=== PATIENT | male | born 1935 | race Caucasian/White ===

== ENCOUNTER → 2016-08-29 | Outpatient (REF) | payer MEDICARE, OTHER ==
[~2016-08-29] MED LIST: /PRAV20TA PO; ARIC5TAB PO; ASPI1TAB PO; ASPI81TA7 PO; ATEN25TA PO; CALC600T57 PO; CIPR500T3 PO; DONETAB6 PO; FISH1000 PO; FISH120012 PO; FLAG500T PO; GABA-283 PO; GABA400C PO; LEUP375KIT IM; LISI2.5T PO; LISI2.5T3 PO; LORTTAB5 PO; LUPRON IM; MULTTAB4 PO; OYSCTAB3 PO; PRAV80TA2 PO; TAMS0.4C2 PO; TYLE325T5 PO; VITMTA PO
== END ==
LOC: M LAB REF 12:26
PROVIDERS: ATTEND Internal Medicine Medical Oncology
DX: C61 Malignant neoplasm of prostate (principal)

== ENCOUNTER → 2016-11-30 | Outpatient (REF) | payer MEDICARE, OTHER ==
[2016-11-30 14:01] LABS: TOTAL PROTEIN 6.9 GM/DL (6.4-8.2)
[2016-12-01 12:39] LABS: ALBUMIN 3.59 GM/DL (3.29-5.55); GAMMA GLOBULIN % 15.2 % (11.1-18.8)
== END ==
LOC: M LAB REF 13:31
PROVIDERS: ATTEND Internal Medicine Medical Oncology
DX: C61 Malignant neoplasm of prostate (principal)

== ENCOUNTER → 2017-03-01 | Outpatient (REF) | payer OTHER, MEDICARE ==
[~2017-03-01] MED LIST changes: +ASPI81TAEC PO; +B121000T PO; +FINA5TAB2 PO; +FLOM5CAP PO; +KEPP250T5 PO; +LOMO2.5T PO; +RISP0.2516 PO
== END ==
LOC: M LAB REF 13:26
PROVIDERS: ATTEND Internal Medicine Medical Oncology
DX: C61 Malignant neoplasm of prostate (principal)

== ENCOUNTER 2017-04-12 18:51 | Observation (INO) | payer OTHER, MEDICAID ==
[~2017-04-12] VITALS: Ht 177.8 cm; Wt 81.4 kg
[~2017-04-12 18:51] MED LIST changes: -ASPI81TAEC PO; -B121000T PO; -FINA5TAB2 PO; -FLOM5CAP PO; -KEPP250T5 PO; -LOMO2.5T PO; -RISP0.2516 PO
[2017-04-12] MEDS ORDERED: NS 500 ML IV ONE (19:30)
[2017-04-12 19:37] LABS: BASO % 1.2 % (0.0-1.0); EOS # 0.2 K/mm3 (0.0-0.50); EOS % 4.9 % (0.0-3.0); LARGE UNSTAINED CELL # 0.2 K/mm3 (0.0-0.4); LARGE UNSTAINED CELL % 3.8 % (0.0-4.0); LYMPH % 22.5 % (24.0-44.0); MEAN CORPUSCULAR HEMOGLOBIN 32.1 pg (27.0-33.0); MEAN CORPUSCULAR HGB CONC 34.7 g/dl (32.0-36.5); MEAN CORPUSCULAR VOLUME 92.5 fl (80.0-96.0); MONO # 0.3 K/mm3 (0.0-0.8); MONO % 7.6 % (0.0-5.0); NEUTROPHILS # 2.6 K/mm3 (1.8-7.7); NEUTROPHILS % 59.9 % (36.0-66.0); PLATELET COUNT, AUTOMATED 218 k/mm3 (150-450); RED CELL DISTRIBUTION WIDTH 11.8 % (11.5-14.5); WHITE BLOOD COUNT 4.3 K/mm3 (4.0-10.0)
[2017-04-12 19:39] LABS: VENOUS BASE EXCESS 3.2 (-2.0-2.0); VENOUS O2 SATURATION 66.7 % (60.0-80.0); VENOUS PARTIAL PRESSURE CO2 48.1 mmHg (38.0-50.0); VENOUS PARTIAL PRESSURE O2 35.7 mmHg (30.0-50.0); VENOUS STANDARD HCO3 26.6 MEQ/L; VENOUS TOTAL CO2 30.3 MEQ/L (24.0-28.0)
--- NOTE | 2017-04-12 19:50 | REPUSA ---
HISTORY: ALTERED MENTAL STATUS. Comparison is made to previous head CT dated 01/31/13. TECHNIQUE: Axial CT imaging of brain without contrast. DLP= 836.2 mGy-cm. FINDINGS: Ventricles and sulci are enlarged consistent with generalized cerebral atrophy, progressiv taylor increased since previous examination. There is no evidence of intracranial hemorrhage, mass, mid line shift, infarct, or abnormal extra-axial fluid collection seen. There is no evidence of skull fracture. Skull base and CP angle regions are normal. Paranasal sinus es are clear. IMPRESSION: Progressive increase of generalized cerebral atrophy with no intracranial mass, hemorrhag e, or evidence of infarct seen at this time. Clinical correlation and followup imaging may be warranted as clinically indicated.
[2017-04-12 20:04] LABS: ALBUMIN 3.2 GM/DL (3.2-5.2); ALBUMIN/GLOBULIN RATIO 0.84 (1.00-1.93); ALKALINE PHOSPHATASE 94 U/L (45-117); ALT/SGPT 16 U/L (12-78); ANION GAP 10 MEQ/L (8-16); AST/SGOT 13 U/L (15-37); BILIRUBIN,DIRECT 0.2 MG/DL (0.0-0.2); BILIRUBIN,TOTAL 0.5 MG/DL (0.2-1.0); BLOOD UREA NITROGEN 24 MG/DL (7-18); CALCIUM LEVEL 8.8 MG/DL (8.8-10.2); CARBON DIOXIDE LEVEL 29 MEQ/L (21-32); CHLORIDE LEVEL 104 MEQ/L (98-107); CREATININE FOR GFR 1.72 MG/DL (0.70-1.30); GLOMERULAR FILTRATION RATE 40.8 (>35); GLUCOSE, FASTING 103 MG/DL (83-110); POTASSIUM SERUM 4.2 MEQ/L (3.5-5.1); SODIUM LEVEL 143 MEQ/L (136-145)
[2017-04-12] MEDS ORDERED: ASPIRIN 81 MG ENTERIC TAB PO SCH (21:00)
[2017-04-12] MEDS ORDERED: LISINOPRIL *2.5 MG* TAB PO SCH (21:00)
[2017-04-12] MEDS ORDERED: FINASTERIDE 5 MG TAB PO SCH (21:00)
[2017-04-12] MEDS ORDERED: FINA5TAB2 PO (21:30)
[2017-04-12] MEDS ORDERED: ASPI81TAEC PO (21:30)
[2017-04-12] MEDS ORDERED: LOMO2.5T PO (21:30)
--- NOTE | 2017-04-12 21:46 | ECGEPIP ---
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
[2017-04-12] MEDS ORDERED: ASPIRIN 325 MG TAB PO ONE (22:00)
[2017-04-12] MEDS ORDERED: NS 1,000 ML IV SCH (22:00)
[2017-04-12] MEDS ORDERED: ACETAMINOPHEN 325 MG TAB PO PRN (22:15)
[2017-04-12 22:51] VITALS: BP 137/70
--- NOTE | 2017-04-12 22:54 | HPEPDOC ---
Medical History and Physical Date of Admission 04/12/17 History and Physical PRIMARY CARE PROVIDER: [facility] ATTENDING: Dr. Renea Sanchez CHIEF COMPLAINT: AMS HISTORY OF PRESENT ILLNESS: This is a 81 y/o M CHB s/p PPM, HTN, Alzheimer's dementia (baseline mumbling), AAA, H/o prostate ca who presents with periods of aphasia. and son state patient has had this over the past year, but it has been progressive today, and they have were worried. Pt had periods of aphasia today , more so expressive. Has also developed tremors over the past month. Once he comes out of his periods of aphasia, he is very disoriented. He is also not been eating well. Has refused to drink fluids and therefore has not been urinating rate much. Has prior admissions for dehydration. Family states that the patient's symptoms have resolved in the ED. His CAT scan of the head was negative in the ED. PAST MEDICAL HISTORY: As per HPI PAST SURGICAL HISTORY: Cholecystectomy, PPM SOCIAL HISTORY: H/o tobacco abuse. No alcohol or illicit drug use. FAMILY HISTORY: Noncontributory ALLERGIES: Please see below. REVIEW OF SYSTEMS: HEENT: Denies sore throat/headache CARDIOVASCULAR: Denies chest pain/palpitations RESPIRATORY: Denies shortness of breath/cough GASTROINTESTINAL: denies nausea/vomiting GENITOURINARY: Denies dysuria/urinary urgency. MUSCULOSKELETAL: Denies myalgias/arthralgias NEUROLOGICAL: Denies any focal weakness HOME MEDICATIONS: Please see below. PHYSICAL EXAMINATION: Vitals: (see below) General: No acute distress, laying comfortably in bed. HEENT: Moist mucous membranes. Neck: No JVD or lymphadenopathy Cardiac: RRR, No murmurs Pulm: Dimished breath sounds at the bases b/l. No wheezing, rhonchi Abd: NT/ND + BS Ext: No edema or cyanosis Neuro: Strength 5/5 BUE and BLE. CN 2-12 intact. Not oriented. Mumbles. States he "feels good" LABORATORY DATA: See below. IMAGING: CT Head 04/12/17 IMPRESSION: Progressive increase of generalized cerebral atrophy with no intracranial mass, hemorrhage, or evidence of infarct seen at this time. MICROBIOLOGY: Please see below. ASSESSMENT/PLAN: 1. AMS with aphasic moments. Progressive over the past year. ? Progression of Dementia. R/o TIA/Seizure given baseline status of mumbling makes it difficult to assess. CT head (see above). No focal deficits on exam, although exam was difficult to complete. MRI Brain unable to obtain given PPM. Repeat CT head in the am. Neuro checks. PT/OT/ST. Consider neuro consult if no improvement. 2. H/o complete heart block s/p PPM 3. HTN - controlled. Cont home meds. 4. HLD - cont statin. 5. H/o AAA 6. H/o Diverticulitis DVT prophy - SCDs. Vital Signs Vital Signs Date Time Temp Pulse Resp B/P (MAP) Pulse Ox O2 Delivery O2 Flow Rate FiO2 04/12/17 21:48 118/58 (78) 04/12/17 21:36 74 95 04/12/17 19:00 97.6 16 Room Air Laboratory Data Labs 24H Laboratory Tests 2 04/12/17 19:17: White Blood Count 4.3, Red Blood Count 3.62L, Hemoglobin 11.6L, Hematocrit 33.5L , Mean Corpuscular Volume 92.5, Mean Corpuscular Hemoglobin 32.1, Mean Corpuscular Hemoglobin Concent 34.7, Red Cell Distribution Width 11.8, Platelet Count 218, Neutrophils (%) (Auto) 59.9, Lymphocytes (%) (Auto) 22.5L, Monocytes (%) (Auto) 7.6H, Eosinophils (%) (Auto) 4.9H, Basophils (%) (Auto) 1.2H, Neutrophils # (Auto) 2.6, Lymphocytes # (Auto) 1.0L, Monocytes # (Auto) 0.3, Eosinophils # (Auto) 0.2, Basophils # (Auto) 0.0, Large Unclassified Cells % 3.8 , Large Unclassified Cells # 0.2, Blood Gas Bicarbonate Standard 26.6, Venous Blood pH 7.395, Venous Blood Partial Pressure CO2 48.1, Venous Blood Partial Pressure O2 35.7, Venous Blood Total Carbon Dioxide 30.3H, Venous Blood HCO3 28.8H, Venous Blood Oxygen Saturation 66.7, Venous Blood Base Excess 3.2H, Anion Gap 10, Glomerular Filtration Rate 40.8, Lactic Acid Level 1.2, Calcium Level 8.8, Aspartate Amino Transf (AST/SGOT) 13L, Alanine Aminotransferase (ALT/ SGPT) 16, Alkaline Phosphatase 94, Total Bilirubin 0.5, Direct Bilirubin 0.2, Ammonia 21, Total Creatine Kinase 48, Creatine Kinase MB 1.0, Creatine Kinase MB Relative Index 2.08, Troponin I < 0.02, Total Protein 7.0, Albumin 3.2, Albumin/Globulin Ratio 0.84L, Thyroid Stimulating Hormone (TSH) 1.680 04/12/17 19:52: Urine Appearance CLEAR, Urine Color YELLOW, Urine pH 5.0, Urine Specific [place] 1.013, Urine Protein NEGATIVE, Urine Glucose (UA) NEGATIVE, Urine Ketones NEGATIVE, Urine Urobilinogen 0.2, Urine Bilirubin NEGATIVE, Urine Leukocyte Esterase NEGATIVE, Urine Blood NEGATIVE, Urine Nitrite NEGATIVE, Urine WBC (Auto) 0, Urine RBC (Auto) 0, Urine Hyaline Casts (Auto) 1, Urine Bacteria (Auto) NEGATIVE, Urine Squamous Epithelial Cells 0, Urine Sperm (Auto) 04/12/17 20:25: Bedside Glucose (Misc Panel) 104 CBC/BMP Laboratory Tests 04/12/17 19:17 Red Blood Count 3.62 L, Mean Corpuscular Volume 92.5, Mean Corpuscular Hemoglobin 32.1, Mean Corpuscular Hemoglobin Concent 34.7, Red Cell Distribution Width 11.8, Neutrophils (%) (Auto) 59.9, Lymphocytes (%) (Auto) 22.5 L, Monocytes (%) (Auto) 7.6 H, Eosinophils (%) (Auto) 4.9 H, Basophils (%) (Auto) 1.2 H, Neutrophils # (Auto) 2.6, Lymphocytes # (Auto) 1.0 L, Monocytes # (Auto) 0.3, Eosinophils # (Auto) 0.2, Basophils # (Auto) 0.0 Microbiology Microbiology 04/12/17 Blood Culture, Received Pending 04/12/17 Blood Culture, Received Pending 04/12/17 Urine Culture, Received Pending Home Medications Scheduled Aspirin (Aspirin EC) 81 Mg Tabec, 81 MG PO QHS Diphenoxylate/Atropine (Lomotil 2.5-0.025 mg) 1 Tab Tab, 2 TAB PO BID Donepezil Hcl (Donepezil HCl) 10 Mg Tab, 10 MG PO QHS Finasteride (Finasteride) 5 Mg Tab, 5 MG PO DAILY Gabapentin (Gabapentin) 400 Mg Cap, 400 MG PO BID Pravastatin Sodium (Pravastatin Sodium) 80 Mg Tab, 80 MG PO QHS Tamsulosin Hydrochloride (Flomax) 0.4 Mg Cap, 0.4 MG PO DAILY Scheduled PRN Acetaminophen (Tylenol) 325 Mg Tab, 650 MG PO Q4H PRN for PAIN Allergies Coded Allergies: Latex (Verified Allergy, Intermediate, HIVES/SWELLING, 01/31/13) Sulfa Drugs (Verified Allergy, Intermediate, HIVES, 01/31/13) Sulfa Drugs Cross Reactors (Verified Allergy, Intermediate, HIVES, 01/31/13 ) Tamsulosin (Verified Allergy, Unknown, 01/27/16) Codeine (Verified Adverse Reaction, Intermediate, UNABLE TO FUNCTION, 01/31) OSORIO ALFORD MD Apr 12, 2017 22:54
[2017-04-12] MEDS: GABAPENTIN 400 MG CAP PO SCH (23:53)
[2017-04-12 23:57] VITALS: BP 112/55
[2017-04-13] VITALS: BP 112/55
[2017-04-13 04:00] VITALS: BP 103/71
--- NOTE | 2017-04-13 05:45 | REP ---
Portable chest x-ray: Single view. History: Altered mental status. Comparison study: February 02, 2013. Findings: EKG monitoring electrodes overlie the chest. Heart is not enlarged. There is a pacemaker in the right heart via the left side, dual lead. The pleural angles are sharp. Impression: No active disease. Pacemaker. Signed by Elia Bustamante MD 04/13/2017 08:23 A
--- NOTE | 2017-04-13 06:40 | REPUSA ---
CLINICAL HISTORY: Altered mental status. TECHNIQUE: Multiple axial CT images were obtained through the brain without IV contrast material. COMMENTS: Comparison to the prior exam performed on 04/12/2017. There is normal configuration of sella turcica. There are no intra or extra-axial collections. There is no mass effect or midline shift. There is no evidence of hematoma formation. No hydrocephalus is p resent. The ventricles are symmetrical. No abnormal calcifications are present. There is diffuse age-appropriate cerebellar and cerebral atrophy with proportionally dilated ventricl es and cortical sulci. There are bilateral periventricular and subcortical white matter hypolucencies compatible with mild c hronic microvascular disease. Otherwise, no significant focal abnormalities are seen either in the posterior fossa or supratentoria l compartment. IMPRESSION: 1. Age-appropriate cerebellar and cerebral atrophy. 2. Mild chronic microvascular disease. 3. No evidence of acute intracranial pathology. Unchanged exam. Thank you for your kind referral of this patient.
[2017-04-13 07:13] LABS: MEAN CORPUSCULAR HEMOGLOBIN 31.3 pg (27.0-33.0); MEAN CORPUSCULAR HGB CONC 33.2 g/dl (32.0-36.5); MEAN CORPUSCULAR VOLUME 94.3 fl (80.0-96.0); WHITE BLOOD COUNT 5.2 K/mm3 (4.0-10.0)
[2017-04-13 07:42] LABS: ANION GAP 10 MEQ/L (8-16); BLOOD UREA NITROGEN 19 MG/DL (7-18); CALCIUM LEVEL 8.8 MG/DL (8.8-10.2); CARBON DIOXIDE LEVEL 25 MEQ/L (21-32); CHLORIDE LEVEL 109 MEQ/L (98-107); CREATININE FOR GFR 1.49 MG/DL (0.70-1.30); GLOMERULAR FILTRATION RATE 48.2 (>35); GLUCOSE, FASTING 99 MG/DL (83-110); POTASSIUM SERUM 4.3 MEQ/L (3.5-5.1); SODIUM LEVEL 144 MEQ/L (136-145)
[2017-04-13 08:00] VITALS: BP 133/68
[2017-04-13] MEDS: GABAPENTIN 400 MG CAP PO SCH (08:26)
[2017-04-13 09:46] LABS: VITAMIN B12 LEVEL 321 PG/ML (247-911)
--- NOTE | 2017-04-13 11:55 | IPNPDOC ---
Subjective Date Seen The patient was seen on 04/13/17. Subjective Chief Complaint/HPI The patient is a 81-year-old male admitted with a reason for visit of TIA. Events since last encounter better this morning had food this am , communicating at baseline as per , does not offer any complaints. no fever or chills, no chest pain or sob , no cough , no abdominal pain , nausea or vomiting or diarrhea Objective Physical Examination General Exam: Positive: Alert, Cooperative, No Acute Distress Eye Exam: Positive: PERRLA, Conjunctiva & lids normal, EOMI, Negative: Sclera icteric ENT Exam: Positive: Atraumatic, Mucous membr. moist/pink, Pharynx Normal Neck Exam: Positive: Supple, Negative: JVD, thyromegaly Chest Exam: Positive: Clear to auscultation, Normal air movement Heart Exam: Positive: Rate Normal, Regular Rhythm, Normal S1, Normal S2, Negative: Murmurs, Rubs Telemetry: Positive: No significant arrhythmia Abdomen Exam: Positive: Normal bowel sounds, Soft, Negative: Tenderness, Hepatospenomegaly Extremity Exam: Positive: Normal pulses, Negative: Clubbing, Cyanosis, Edema Skin Exam: Positive: Nl turgor and temperature, Negative: Rash, Breakdown Assessment /Plan Problems (1) Dehydration Status: Acute Problem Text: has improved with ivf. will stop ivf (2) Acute metabolic encephalopathy Status: Acute Problem Text: due to dehydration on the background of baseline dementia. This made his mental status worse. (3) Acute kidney injury superimposed on CKD Status: Acute Problem Text: due to dehydration now improved baseline creatinine around 1.4 to 1.5 (4) Dementia Status: Chronic Problem Text: has progressive Alzheimer's dementia worsening over the past 1 year Has expressive aphasia at baseline but worse yesterday due to dehydration. will continue with home medications. (5) Pacemaker Status: Chronic (6) AAA (abdominal aortic aneurysm) Status: Chronic (7) Hypertension Status: Chronic Problem Text: At present blood pressure low normal and too well controlled for his age will discontinue lisinopril Can allow SBPs of 140 to 150. (8) History of prostate cancer Status: Chronic Plan/VTE VTE Prophylaxis Ordered?: Yes VS, I&O, 24H, Fishbone Vital Signs/I&O Vital Signs Date Time Temp Pulse Resp B/P (MAP) Pulse Ox O2 Delivery O2 Flow Rate FiO2 04/13/17 08:00 97.6 66 16 133/68 (89) 96 Room Air I&O- Last 24 Hours up to 6 AM 04/13/17 05:59 Intake Total 80 ml Output Total 450 ml Balance -370 ml Laboratory Data 24H LABS Laboratory Tests 2 04/12/17 19:17: White Blood Count 4.3, Red Blood Count 3.62L, Hemoglobin 11.6L, Hematocrit 33.5L , Mean Corpuscular Volume 92.5, Mean Corpuscular Hemoglobin 32.1, Mean Corpuscular Hemoglobin Concent 34.7, Red Cell Distribution Width 11.8, Platelet Count 218, Neutrophils (%) (Auto) 59.9, Lymphocytes (%) (Auto) 22.5L, Monocytes (%) (Auto) 7.6H, Eosinophils (%) (Auto) 4.9H, Basophils (%) (Auto) 1.2H, Neutrophils # (Auto) 2.6, Lymphocytes # (Auto) 1.0L, Monocytes # (Auto) 0.3, Eosinophils # (Auto) 0.2, Basophils # (Auto) 0.0, Large Unclassified Cells % 3.8 , Large Unclassified Cells # 0.2, Blood Gas Bicarbonate Standard 26.6, Venous Blood pH 7.395, Venous Blood Partial Pressure CO2 48.1, Venous Blood Partial Pressure O2 35.7, Venous Blood Total Carbon Dioxide 30.3H, Venous Blood HCO3 28.8H, Venous Blood Oxygen Saturation 66.7, Venous Blood Base Excess 3.2H, Anion Gap 10, Glomerular Filtration Rate 40.8, Lactic Acid Level 1.2, Calcium Level 8.8, Aspartate Amino Transf (AST/SGOT) 13L, Alanine Aminotransferase (ALT/ SGPT) 16, Alkaline Phosphatase 94, Total Bilirubin 0.5, Direct Bilirubin 0.2, Ammonia 21, Total Creatine Kinase 48, Creatine Kinase MB 1.0, Creatine Kinase MB Relative Index 2.08, Troponin I < 0.02, Total Protein 7.0, Albumin 3.2, Albumin/Globulin Ratio 0.84L, Thyroid Stimulating Hormone (TSH) 1.680 04/12/17 19:52: Urine Appearance CLEAR, Urine Color YELLOW, Urine pH 5.0, Urine Specific [place] 1.013, Urine Protein NEGATIVE, Urine Glucose (UA) NEGATIVE, Urine Ketones NEGATIVE, Urine Urobilinogen 0.2, Urine Bilirubin NEGATIVE, Urine Leukocyte Esterase NEGATIVE, Urine Blood NEGATIVE, Urine Nitrite NEGATIVE, Urine WBC (Auto) 0, Urine RBC (Auto) 0, Urine Hyaline Casts (Auto) 1, Urine Bacteria (Auto) NEGATIVE, Urine Squamous Epithelial Cells 0, Urine Sperm (Auto) 04/12/17 20:25: Bedside Glucose (Misc Panel) 104 04/13/17 00:46: Total Creatine Kinase 41, Creatine Kinase MB 1.0, Creatine Kinase MB Relative Index 2.43, Troponin I < 0.02 04/13/17 06:58: Anion Gap 10, Glomerular Filtration Rate 48.2, Blood Urea Nitrogen 19H, Creatinine 1.49H, Sodium Level 144, Potassium Level 4.3, Chloride Level 109H, Carbon Dioxide Level 25, Calcium Level 8.8, Total Creatine Kinase 45, Magnesium Level 2.0, Creatine Kinase MB 1.0, Creatine Kinase MB Relative Index 2.22, Troponin I < 0.02, Vitamin B12 Level 321 CBC/BMP Laboratory Tests 04/12/17 19:17 Red Blood Count 3.62 L, Mean Corpuscular Volume 92.5, Mean Corpuscular Hemoglobin 32.1, Mean Corpuscular Hemoglobin Concent 34.7, Red Cell Distribution Width 11.8, Neutrophils (%) (Auto) 59.9, Lymphocytes (%) (Auto) 22.5 L, Monocytes (%) (Auto) 7.6 H, Eosinophils (%) (Auto) 4.9 H, Basophils (%) (Auto) 1.2 H, Neutrophils # (Auto) 2.6, Lymphocytes # (Auto) 1.0 L, Monocytes # (Auto) 0.3, Eosinophils # (Auto) 0.2, Basophils # (Auto) 0.0 04/13/17 06:58 Red Blood Count 3.42 L, Mean Corpuscular Volume 94.3, Mean Corpuscular Hemoglobin 31.3, Mean Corpuscular Hemoglobin Concent 33.2, Red Cell Distribution Width 12.0, Calcium Level 8.8, Total Creatine Kinase 45 Microbiology Microbiology 04/12/17 Blood Culture, Received Pending 04/12/17 Blood Culture, Received Pending 04/12/17 Urine Culture, Received Pending DARRYN SHIELDS MD Apr 13, 2017 11:55
[2017-04-13] MEDS ORDERED: PRAVASTATIN 20 MG TAB PO SCH (21:00)
[2017-04-13] MEDS ORDERED: ASPIRIN 81 MG ENTERIC TAB PO SCH (21:00)
[2017-04-15] MEDS ORDERED: PREVNAR 13 VACCINE SYRINGE (CPT CODE:90670) IM ONE (09:00)
--- NOTE | 2017-04-15 11:44 | EEG ---
DATE OF EE04/13/2017 REFERRING PHYSICIAN: Dr. Renea Sanchez DIAGNOSIS: Seizure. EEG NUMBER: [id number]. HISTORY: Patient is an 81-year-old man who was admitted at [facility] due to episodes of aphasia. Patient has tremor over last 1 month. He has episodes of aphasia followed by disorientation. This EEG was done to rule out epileptic potential. INTERPRETATION: Patient was noted to be in awake and drowsy states during this EEG. Resting awake background rhythm consisted of 3-4 Hz delta activity measuring 15-30 microvolts in amplitude. Stage I and II sleep were reviewed and were symmetric bilaterally. Hyperventilation could not be performed. Photic stimulation remained unremarkable. EKG revealed normal sinus rhythm. No clear epileptiform abnormalities were seen. No clinical or electrographic seizures were recorded. CONCLUSION: This EEG in awake, stage I and II sleep is abnormal due to presence of generalized slowing and disorganization of background consistent with nonspecific diffuse cerebral dysfunction such as seen in encephalopathy due to multiple potential causes. No clear epileptiform abnormalities were seen. Partial seizures cannot be excluded based on this study. Clinical correlation is recommended. edited: 04/17/2017 1039 tkf MTDD
== END 2017-04-13 11:55 | disposition home or self-care (01) ==
LOC: M ED 18:51 → M ED INP 21:57
PROVIDERS: ADMIT Internal Medicine; ATTEND Internal Medicine Nephrology
DX: E86.0 Dehydration (principal); G93.41 Metabolic encephalopathy; N17.9 Acute kidney failure, unspecified; N18.9 Chronic kidney disease, unspecified; F02.80 Dementia in other diseases classified elsewhere, unspecified severity, without behavioral disturbance, psychotic disturbance, mood disturbance, and anxiety; G30.9 Alzheimer's disease, unspecified; Z95.0 Presence of cardiac pacemaker; I71.4 Abdominal aortic aneurysm, without rupture; I12.9 Hypertensive chronic kidney disease with stage 1 through stage 4 chronic kidney disease, or unspecified chronic kidney disease; Z85.46 Personal history of malignant neoplasm of prostate; Z79.82 Long term (current) use of aspirin; Z79.899 Other long term (current) drug therapy; Z91.040 Latex allergy status; Z88.2 Allergy status to sulfonamides; Z88.8 Allergy status to other drugs, medicaments and biological substances; Z92.3 Personal history of irradiation
CPT/HCPCS: 36415; 51701; 70450; 71010; 80048; 80076; 81001; 82140; 82550; 82553; 82607; 82803; 83605; 83735; 84443; 84484; 85025; 85027; 87040; 87086; 92610; 93005; 93041; 95819; 96360; 96361; 99285; G0378

== ENCOUNTER 2017-04-23 09:12 | Inpatient (IN) | payer OTHER, MEDICAID ==
[~2017-04-23] VITALS: Ht 177.8 cm; Wt 79.7 kg
[~2017-04-23 09:12] MED LIST changes: +ASPI81TAEC PO; +ATENOLOL 25 MG TAB PO SCH; +FINA5TAB2 PO; +LOMO2.5T PO
[2017-04-23] MEDS ORDERED: NS 1,000 ML IV SCH (09:51)
--- NOTE | 2017-04-23 10:40 | REP ---
Clinical: Altered mental status. Headache. Comparison: 04/12/2017. Findings: Age-related atrophy and microvascular ischemic changes are appreciated. The ventricles and sulci are symmetric. Levy-white differentiation is maintained. There is no evidence for acute intracranial hemorrhage, mass/mass effect, pathology or infarction. No extra-axial fluid collection. Calvarium is intact. Paranasal sinuses and mastoid air cells are clear. Atherosclerotic changes to the internal carotid arteries noted. Impression: Age related atrophy and microvascular ischemic changes. No acute intracranial hemorrhage, infarction, or mass/mass effect. Signed by Asaf Alcaraz MD 04/23/2017 10:32 A
--- NOTE | 2017-04-23 10:41 | REP ---
Clinical: Chest pain. Altered mental status. Technique: AP and cross-table lateral views. Comparison: None 03/12/2017. Findings: Mediastinum and cardiac silhouette are stable. Bibasilar atelectasis is suggested along with underlying chronic interstitial changes. No effusion. No pneumothorax. Skeletal structures demonstrate osteopenia and degenerative changes. Impression: Mild bibasilar atelectasis. Signed by Asaf Alcaraz MD 04/23/2017 10:33 A
[2017-04-23 11:00] LABS: BASO % 0.5 % (0.0-1.0); EOS # 0.1 K/mm3 (0.0-0.50); EOS % 1.3 % (0.0-3.0); LARGE UNSTAINED CELL # 0.2 K/mm3 (0.0-0.4); LARGE UNSTAINED CELL % 3.5 % (0.0-4.0); LYMPH # 0.6 K/mm3 (1.5-4.5); LYMPH % 11.9 % (24.0-44.0); MEAN CORPUSCULAR HEMOGLOBIN 31.7 pg (27.0-33.0); MEAN CORPUSCULAR HGB CONC 34.5 g/dl (32.0-36.5); MEAN CORPUSCULAR VOLUME 91.9 fl (80.0-96.0); MONO # 0.4 K/mm3 (0.0-0.8); MONO % 7.5 % (0.0-5.0); NEUTROPHILS # 3.7 K/mm3 (1.8-7.7); NEUTROPHILS % 75.2 % (36.0-66.0); PLATELET COUNT, AUTOMATED 188 k/mm3 (150-450); RED CELL DISTRIBUTION WIDTH 11.9 % (11.5-14.5); WHITE BLOOD COUNT 4.8 K/mm3 (4.0-10.0)
[2017-04-23 11:09] LABS: ALBUMIN 3.1 GM/DL (3.2-5.2); ALBUMIN/GLOBULIN RATIO 0.74 (1.00-1.93); ALKALINE PHOSPHATASE 83 U/L (45-117); ALT/SGPT 14 U/L (12-78); ANION GAP 8 MEQ/L (8-16); AST/SGOT 9 U/L (15-37); BILIRUBIN,DIRECT 0.2 MG/DL (0.0-0.2); BILIRUBIN,TOTAL 0.8 MG/DL (0.2-1.0); BLOOD UREA NITROGEN 19 MG/DL (7-18); CALCIUM LEVEL 8.9 MG/DL (8.8-10.2); CARBON DIOXIDE LEVEL 29 MEQ/L (21-32); CHLORIDE LEVEL 101 MEQ/L (98-107); CREATININE FOR GFR 1.57 MG/DL (0.70-1.30); GLOMERULAR FILTRATION RATE 45.4 (>35); GLUCOSE, FASTING 98 MG/DL (83-110); POTASSIUM SERUM 4.2 MEQ/L (3.5-5.1); SODIUM LEVEL 138 MEQ/L (136-145); TOTAL PROTEIN 7.3 GM/DL (6.4-8.2)
[2017-04-23 11:17] LABS: OSMOLALITY SERUM 286 MOSM/KG (280-301)
[2017-04-23] MEDS ORDERED: FINA5TAB2 PO (13:16)
[2017-04-23] MEDS ORDERED: FLOM5CAP PO (13:16)
[2017-04-23 13:25] LABS: FREE T4 1.63 NG/DL (0.76-1.46)
--- NOTE | 2017-04-23 13:28 | HPE ---
DATE OF ADMISSION: 04/23/2017 PRIMARY CARE PROVIDER: [facility]/Dr. Resendiz ATTENDING PHYSICIAN: Dr. Carrie Uriarte CHIEF COMPLAINT: Neurologic weakness with falls. HISTORY: Kashmir Cohen is an 81-year-old patient of [facility]. The family has brought him to the emergency room twice now in a 10-day period. He is having rather abrupt onset of leg weakness that started to be noticed a few weeks ago, and it has got much worse in the last few days. He is unable to walk. His legs buckle. His arms are weak. He cannot lift food to feed himself. He used to verbalize, and now he is just mumbling. This is all quite more prominent over the last few days. Today, his was trying to shuffle him to the bathroom when his legs gave way, and he fell to the floor. He has been having twitching of the upper extremities. It is recent over the last few weeks and quite noticeable over the last day, as well. He has a history of dementia that seemed relatively stable until a few weeks ago. He is on Aricept for this. I am not aware that he sees a neurologist, as I do not have access to his outpatient records. He does not have a medical orders for life-sustaining treatment (MOLST) form. (We completed one today. Details are below.) PAST MEDICAL HISTORY: Shows that he had a pacemaker placed by Dr. Beverly 01/17/2017. He has an abdominal aortic aneurysm that is 34 x 37 mm 01/21/2017, which the family does not want worked up any further or any intervention towards this. History of hyperlipidemia, benign prostatic hypertrophy (BPH), prostate cancer on hormonal therapy from Dr. Hernandez in neurology. Used to be followed by Dr. Lopez before he retired. I am not sure who his oncologist is now. He might have neuropathy. He is on Neurontin, and I do not see a diagnosis for which there would be an indication otherwise. SURGICAL HISTORY: Cholecystectomy for a ruptured gallbladder in 1989, pacemaker January 2016, colonoscopy in 2006, prostate cancer treated with external radiation therapy and then Lupron injections. REVIEW OF SYSTEMS: As above. No cough, wheeze, shortness of breath, rectal bleeding, urinary bleeding, fever, chills, night sweats. MEDICATIONS: Medications appear to be: - atenolol 25 mg daily - pravastatin 80 mg daily - aspirin 81 mg daily - donepezil 10 mg daily - gabapentin 400 mg twice a day He previously was on lisinopril. I do not see that on his current medication list. SOCIAL HISTORY: . Nonsmoker. Very attentive family. He has three sons who are with him all day during the weekend and one possible after work. CODE STATUS: No MOLST form. We completed one today. He is now DO NOT RESUSCITATE (DNR), DO NOT INTUBATE (DNI), no tube feeding, trial of intravenous (IV) fluids if necessary. PHYSICAL EXAMINATION: 129/73, pulse of 74, respiratory rate 18, 94% oxygen (O2) saturation. General appearance: Elderly male, alert but not able to follow commands. He looks to have some ptosis of his upper lids. Neck is supple. Pupils equal, round, and reactive to light. Pharynx benign. Soft carotid bruits. Lungs: Decreased breath sounds.] Heart: Regular rhythm. 1/6 systolic ejection murmur. Abdomen: Soft, nontender, no masses. Extremities: Trace peripheral edema. No clubbing or cyanosis. Neurological examination: Was difficult due to his inability to follow commands, but he definitely had neurologic weakness of his legs grade 4/5. His arms were grade 4+/5 symmetric. He has a myoclonic twitching of the upper extremities. I did not see any fasciculations. CT of the brain shows atrophy, nothing acute. Chest x-ray shows pacemaker. No infiltrate. Hemoglobin is 12, white count 4.8, platelets 188. Sodium 138, potassium 4.2, BUN 19, creatinine 1.5, glucose 98, liver functions are normal, ammonia level is 15, TSH was suppressed at 0.15. I suspect that is a laboratory error. He had a normal TSH 10 days ago. It was 1.6. He has had four TSHs over the last 3 years, and they have all been normal until today. Again, I suspect laboratory error. He had a normal B12 level at 321 on 04/13/2017. Last prostate-specific antigen (PSA) was 02/19/2017. It was low at 0.38. Urine culture is pending. Blood and urine culture 10 days ago were negative. IMPRESSION: 1. Acute onset of a progressive neurologic weakness affecting upper and lower extremities. Plan: He will be admitted to a medical bed. I will ask neurology to see him. I know he had an electroencephalogram (EEG) done by Dr. Sage on 04/13/2017 that did not show any epileptiform activity, just encephalopathic changes, probably from his dementia. I am concerned mostly about the tremors and twitches. I have ordered a CT of the cervical and lumbosacral spine looking for spinal stenosis. We need to do this without contrast due to his chronic kidney disease. Physical therapy has been ordered. They did see him in the emergency room and feel that he will need a wheelchair, commode, and a Thalia lift prior to discharge home. 2. Chronic kidney disease stage III. Glomerular filtration rate (GFR) is 45, stable. Avoid nonsteroidal antiinflammatory drugs (NSAIDs), IV contrast. Adjust medications for a degree of renal insufficiency. 3. Hyperlipidemia. Continue pravastatin. 4. History of prostate cancer. Prostate-specific antigen (PSA) is stable, and I do not think this counts at all for his current medical issues. 5. Hypertension. Continue his atenolol. 6. Pacemaker status. Unable to order MRIs. 7. Abdominal aortic aneurysm. 34 x 37 mm in January of 2016. With no further workup requested by family. ADVANCED DIRECTIVES: I went over the MOLST form with his , who is his healthcare proxy and a healthcare agent, as well as a son, who is a healthcare proxy, as well. They filled out the MOLST form with DNR status, DO NOT INTUBATE, no tube feeding, trial of IV fluids and antibiotics requested if necessary.
[2017-04-23 15:38] VITALS: BP 147/74
[2017-04-23] MEDS ORDERED: GABAPENTIN 400 MG CAP PO SCH (16:00)
--- NOTE | 2017-04-23 17:27 | IPNPDOC ---
Date Seen The patient was seen on 04/23/17. Neurology Note: Patient seen and examined at bedside. Please see full dictated note. Patient is able to demonstrate reasonable lower extremity strength. He is hyperreflexic in the arms and legs. He is demonstrating Wernicke's aphasia which is at least 2 years old. There is some component of motor apraxia which can be seen in strokes as well as neurodegenerative diseases of the brain as seen in vascular dementias. Agree with ruling out myelopathy. I have ordered a Thoracic CT spine scan as well. Continue PT OT. EEG on 04/13/17 consistent with encephalopathy and dementia. Progress Note SUBJECTIVE: Patient is a -year-old [RACE] [GENDER] with OBJECTIVE PHYSICAL EXAMINATION: VITAL SIGNS: Please see below. GENERAL: HEENT: CARDIOVASCULAR: . RESPIRATORY: . ABDOMINAL: EXTREMITIES: NEUROLOGICAL: PSYCHOLOGICAL: LABORATORY DATA: Please see below. MICROBIOLOGY: Please see below. IMAGING: Echocardiogram: . DVT prophylaxis ordered?: ASSESSMENT AND PLAN: This is a -year-old [RACE] [GENDER] with . PROBLEMS: 1. : . 2. : . 3. : . DISPOSITION: . VS, I&O, 24H, [facility] Vital Signs/I&O Vital Signs Date Time Temp Pulse Resp B/P (MAP) Pulse Ox O2 Delivery O2 Flow Rate FiO2 04/23/17 15:38 98.7 75 18 147/74 (98) 95 Room Air Laboratory Data 24H LABS Laboratory Tests 2 04/23/17 10:40: White Blood Count 4.8, Red Blood Count 3.78L, Hemoglobin 12.0L, Hematocrit 34.8L , Mean Corpuscular Volume 91.9, Mean Corpuscular Hemoglobin 31.7, Mean Corpuscular Hemoglobin Concent 34.5, Red Cell Distribution Width 11.9, Platelet Count 188, Neutrophils (%) (Auto) 75.2H, Lymphocytes (%) (Auto) 11.9L, Monocytes (%) (Auto) 7.5H, Eosinophils (%) (Auto) 1.3, Basophils (%) (Auto) 0.5 , Neutrophils # (Auto) 3.7, Lymphocytes # (Auto) 0.6L, Monocytes # (Auto) 0.4, Eosinophils # (Auto) 0.1, Basophils # (Auto) 0.0, Large Unclassified Cells % 3.5 , Large Unclassified Cells # 0.2, Anion Gap 8, Glomerular Filtration Rate 45.4, Osmolality 286, Calcium Level 8.9, Aspartate Amino Transf (AST/SGOT) 9L, Alanine Aminotransferase (ALT/SGPT) 14, Alkaline Phosphatase 83, Total Bilirubin 0.8, Direct Bilirubin 0.2, Ammonia 15, Total Creatine Kinase 34L, Creatine Kinase MB 1.0, Creatine Kinase MB Relative Index 2.94, Troponin I < 0.02, Total Protein 7.3, Albumin 3.1L, Albumin/Globulin Ratio 0.74L, Thyroid Stimulating Hormone (TSH) 0.146L, Free Thyroxine 1.63H 04/23/17 11:01: Urine Appearance CLEAR, Urine Color YELLOW, Urine pH 5.0, Urine Specific [place] 1.012, Urine Protein NEGATIVE, Urine Glucose (UA) NEGATIVE, Urine Ketones NEGATIVE, Urine Urobilinogen 0.2, Urine Bilirubin NEGATIVE, Urine Leukocyte Esterase NEGATIVE, Urine Blood NEGATIVE, Urine Nitrite NEGATIVE, Urine WBC (Auto) 1, Urine RBC (Auto) 3, Urine Hyaline Casts (Auto) 0, Urine Bacteria (Auto) 1+H, Urine Squamous Epithelial Cells 0, Urine Sperm (Auto) CBC/BMP Laboratory Tests 04/23/17 10:40 Red Blood Count 3.78 L, Mean Corpuscular Volume 91.9, Mean Corpuscular Hemoglobin 31.7, Mean Corpuscular Hemoglobin Concent 34.5, Red Cell Distribution Width 11.9, Neutrophils (%) (Auto) 75.2 H, Lymphocytes (%) (Auto) 11.9 L, Monocytes (%) (Auto) 7.5 H, Eosinophils (%) (Auto) 1.3, Basophils (%) ( Auto) 0.5, Neutrophils # (Auto) 3.7, Lymphocytes # (Auto) 0.6 L, Monocytes # ( Auto) 0.4, Eosinophils # (Auto) 0.1, Basophils # (Auto) 0.0 Microbiology Microbiology 04/23/17 Urine Culture, Received Pending CONSTANTINO SANDOVAL MD Apr 23, 2017 17:27
[2017-04-23] MEDS: ENOXAPARIN 30 MG/0.3 ML SYR (J1650) SC SCH (17:44)
[2017-04-23] MEDS: FINASTERIDE 5 MG TAB PO SCH (17:44)
[2017-04-23] MEDS: ASPIRIN 81 MG ENTERIC TAB PO SCH (17:44)
[2017-04-23 18:00] VITALS: BP 144/63
--- NOTE | 2017-04-23 18:40 | REPUSA ---
CT of the lumbar spine without contrast Clinical history: Pain. Technique: Multiple axial CT images were obtained through the lumbar spine without administration of contrast. Coronal and sagittal 3-D reconstructed images were also obtained. Findings: The lumbar vertebral bodies are in satisfactory positioning and alignment. No fractures or dislocatio ns are demonstrated. Intervertebral disc spaces are well-maintained. There is no evidence of facet sánchez bluxation. The neural foramen are narrowed bilaterally at L5/S1. There is a large disc osteophyte com plex and disc bulge at L5/S1, causing moderate mass effect on the anterior thecal sac. There is borde rline central canal narrowing at this level, measuring 10 mm in AP diameter. There is also a broad di sc bulge at L4/L5, without discrete evidence of central canal stenosis. There is an infrarenal abdomi nal aortic aneurysm, measuring 3.7 x 3.7 cm, measuring 4.9 cm in length. The surrounding soft tissues are within normal limits. Impression: 1. No acute fracture or traumatic injury. 2. Large disc osteophyte complex and disc bulge at L5/S1, causing mild central canal stenosis and jose ateral neural foraminal narrowing. 3. Broad disc bulge at L4/L5, without evidence of central canal stenosis.
--- NOTE | 2017-04-23 18:50 | REPUSA ---
CT of the soft tissues of the neck Clinical history: weakness. Technique: Multiple axial CT images were obtained from the base of the skull to the upper thorax with out administration of contrast. Findings: The visualized paranasal sinuses are clear. The pterygopalatine fossa, pterygoid plates and pterygoid muscles are unremarkable. The mucosa of the naso- and oropharynx appears unremarkable. The hypopharynx and larynx show no pathology. The visualized osseous structures are intact. There is mil d bilateral facet arthropathy. There is no evidence of degenerative disc disease. The airway is paten t. No focal mass is appreciated. There is no evidence of lymphadenopathy. The thyroid gland appears u nremarkable. The superficial soft tissues are unremarkable. Impression: Unremarkable CT examination of the soft tissues of the neck. Mild facet arthropathy in th e cervical spine.
--- NOTE | 2017-04-23 18:50 | REPUSA ---
CT of the thoracic spine without contrast Clinical history: leg weakness. Technique: Multiple axial CT images were obtained through the thoracic spine without administration o f contrast. Coronal and sagittal 3-D reconstructed images were also obtained. Findings: The vertebral bodies are in satisfactory positioning and alignment. No fractures or dislocations are demonstrated. Intervertebral disc spaces are well-maintained. There is no evidence of facet subluxati on. The neural foramen appear grossly patent. The spinal canal demonstrates normal caliber and contou r without evidence of spinal stenosis. The surrounding soft tissues are within normal limits. Impression: No acute abnormalities appreciated.
[2017-04-23] MEDS: DONEPEZIL 5 MG TAB PO SCH (20:09)
[2017-04-23] MEDS: GABAPENTIN 400 MG CAP PO SCH (20:09)
[2017-04-23] MEDS: PRAVASTATIN 20 MG TAB PO SCH (20:09)
--- NOTE | 2017-04-23 21:42 | CR ---
DATE OF CONSULTATION: 04/23/2017 REQUESTING PROVIDER: Dr. Pablito Jacome. REASON FOR CONSULTATION: Progressive weakness of the lower extremities. HISTORY OF PRESENT ILLNESS: Kashmir Cohen is an 81-year-old male who presents to [facility] with one week's worth of sudden worsening of gait. The patient has had a slight gradual decline in gait over the last 2-3 weeks but suddenly worsened within the past week. The patient is noted to have a baseline history of dementia for which he is on Aricept. The patient does not follow with neurology. The patient developed progressive gradual onset dysphasia approximately 2 years ago. At that time he did not present with any specific unilateral weakness or numbness or facial droop. The patient does have a pacemaker and MRIs are not possible. CT scan of the cervical spine on 01/31/2017, revealed disc bulges at C3-4 through C5-6 with minimal narrowing of the spinal canal. The patient is noted to have slightly increased reflexes in the upper and lower extremities. He is currently pending cervical and lumbosacral CT spine imaging, and CT thoracic spine imaging as well. The patient is described to have slight shuffling gait when he ambulates. The patient is taking shorter steps more recently within the past week. The patient understands spoken language but has a Wernicke's type of aphasia. The patient can follow commands and can follow pantomime. He actually demonstrates reasonable strength in the upper and lower extremity muscles tested with 4/5 weakness in his left triceps, but demonstrates reasonable strength in his bilateral iliopsoas, quadriceps and anterior tibialis. Babinski signs were absent on examination. Due to the hyperreflexia it is important to rule out any cord myelopathy. The patient has been experiencing abnormal involuntary muscle twitches of the upper extremities. The patient usually has them occur mostly with he is about to fall asleep. Over the last 2 years he has been sleeping more often during the day then compared to previously. PAST MEDICAL HISTORY: Pacemaker, aortic aneurysm, hyperlipidemia, benign prostatic hypertrophy, history of prostate cancer, peripheral neuropathy. PAST SURGICAL HISTORY: Cholecystectomy for ruptured gallbladder in 1989, pacemaker placement in January 2016, colonoscopy 2006, prostate cancer treated with external radiation therapy and Lupron injections. REVIEW OF SYSTEMS: The patient denies any pain, chest pain, shortness of breath. Denies any focal weakness. The patient is able to answer yes or no questions. 14-point review of systems obtained and is negative except as per HPI. MEDICATIONS: - atenolol 25 mg by mouth daily - pravastatin 80 mg by mouth daily - aspirin 81 mg by mouth daily - donepezil 10 mg by mouth daily - gabapentin 400 mg by mouth twice a day ALLERGIES: CODEINE, LATEX, SULFA, TAMSULOSIN. SOCIAL HISTORY: The patient denies use of tobacco, alcohol or illicit drugs. The patient has a DO NOT RESUSCITATE and DO NOT INTUBATE, no feeding tube with trial of intravenous fluids based on recently filled MOLST form. Workup so far has included laboratory work: Slightly elevated BUN of 19, creatinine 1.57, ammonia level is 15, CPK 34, TSH 0.146, free T4 1.63. Acetylcholine receptor ceptor antibody is pending. Head CT shows age-related atrophy, small-vessel ischemic disease without any acute stroke. B12 level on 04/13/2017, 321, low normal level. PHYSICAL EXAMINATION: Blood pressure is 110/66, pulse of 62, respiratory rate is 16, temperature is 97.8 degrees Fahrenheit, oxygenation 94% on room air. The patient is awake, alert, he can say his name at times, he can sometimes pronounce specific words with great articulation including words such as yes, no, cold, and his name. The patient has a Wernicke's type aphasia with a word stylet speech. He is not able to repeat. Pupils are 2.5 mm round, reactive to light. Extraocular movements are intact in all directions. Sensation V1, V2, V3 is intact to light touch. No facial asymmetry to activation. Palate elevates symmetrically. Tongue is midline. There is no drift of the upper extremities. The patient demonstrates normal tone in the upper and lower extremities. Strength appears to be 5/5 including bilateral biceps, 5 on the right triceps, 4 on the left triceps, hand food service assistant are 5- bilaterally, iliopsoas appear to be 5- bilaterally, quadriceps are 5/5, anterior tibialis 5/5, deep tendon reflexes are 3s throughout with absent Babinski signs. Sensory is intact to light touch in all four extremities. The patient has difficult time with [id number] coordination testing, though does not demonstrate any gross ataxia. Gait deferred. ASSESSMENT: 1. 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 2. Rule out myelopathy of the cervical thoracic cord. 3. 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 4. Confusion, probably secondary to baseline dementia. 5. Aphasia, Wernicke's type, described as slow progressive, possibly again related to vascular disease of the brain. PLAN: 1. Continue aspirin 81 mg by mouth daily. 2. Due to the patient's excessive sedation, consider reducing dosage of gabapentin to 200 mg twice a day. 3. Consider starting Keppra 250 mg by mouth twice a day for myoclonus. 4. Obtain CT cervical spine, thoracic spine and lumbosacral spine to rule out cord myelopathy, spinal stenosis. 5. PT, OT. 6. EEG already obtained on 04/13/2017 showing encephalopathy likely related to the patient's baseline dementia. No need to repeat at this time. 7. Start B12 1000 mcg IM for low normal level of B12 of 321, possibly contributing towards disease of the central nervous system and also possibly contributing towards peripheral neuropathy symptoms. 8. Will continue to follow.
[2017-04-23 22:00] VITALS: BP 112/80
[2017-04-24 02:00] VITALS: BP 117/64
[2017-04-24 06:00] VITALS: BP 117/66
[2017-04-24] MEDS ORDERED: LEVOTHYROXINE 12.5MCG PER 1/2 TAB (0.0125MG) PO SCH (06:00)
[2017-04-24 06:04] LABS: MEAN CORPUSCULAR HEMOGLOBIN 31.2 pg (27.0-33.0); MEAN CORPUSCULAR VOLUME 91.6 fl (80.0-96.0); RED CELL DISTRIBUTION WIDTH 12.3 % (11.5-14.5); WHITE BLOOD COUNT 4.7 K/mm3 (4.0-10.0)
[2017-04-24 06:29] LABS: CALCIUM LEVEL 8.5 MG/DL (8.8-10.2); CREATININE FOR GFR 1.43 MG/DL (0.70-1.30); GLOMERULAR FILTRATION RATE 50.5 (>35); MAGNESIUM LEVEL 2.1 MG/DL (1.8-2.4); POTASSIUM SERUM 3.9 MEQ/L (3.5-5.1)
--- NOTE | 2017-04-24 07:55 | ECGEPIP ---
Stationary ECG Study [facility] - ED Test Date: 2017-04-23 Pat Name: TRUMAN DUMONT Department: Room: [place] [address] Gender: M Front Office Secretary: tomas : 1935 Requested By: Wendy Bermeo Order Number: [id number] Reading MD: Jose Cruz Whiting Measurements Intervals [place] Rate: 76 P: 12 VT: 203 QRS: 32 QRSD: 101 T: 66 QT: 364 QTc: 412 Interpretive Statements SINUS RHYTHM Electronically Signed On 04-24-2017 7:54:57 EDT by Jose Cruz Whiting
[2017-04-24] MEDS ORDERED: CYANOCOBALAMIN 1,000 MCG/ML VIAL (J3420) IM SCH (09:00)
[2017-04-24] MEDS: ENOXAPARIN 30 MG/0.3 ML SYR (J1650) SC SCH (09:14)
[2017-04-24] MEDS: FINASTERIDE 5 MG TAB PO SCH (09:15)
[2017-04-24] MEDS: ASPIRIN 81 MG ENTERIC TAB PO SCH (09:15)
[2017-04-24] MEDS: GABAPENTIN 400 MG CAP PO SCH (09:15)
[2017-04-24 10:00] VITALS: BP 104/55
--- NOTE | 2017-04-24 11:23 | IPNPDOC ---
Subjective Date Seen The patient was seen on 04/24/17. Subjective Chief Complaint/HPI The patient is a 81-year-old male admitted with a reason for visit of [place] Neurological Muscle Weakness. General: Reports: ROS Unobtainable (pt is unable to communicate verbal language in a sensible manner) Objective Physical Examination General Exam: Positive: No Acute Distress, Negative: Alert (pt is arousable to verbal stimuli but closes his eyes and seems to fatigue easily) Eye Exam: Positive: PERRLA, Conjunctiva & lids normal, EOMI, Negative: Sclera icteric ENT Exam: Positive: Atraumatic Chest Exam: Positive: Clear to auscultation, Normal air movement, Negative: Rales, Rhonchi, Wheezing, Diminished Heart Exam: Positive: Rate Normal, Normal S1, Normal S2, Negative: Murmurs, Rubs Abdomen Exam: Positive: Normal bowel sounds, Soft, Negative: Tenderness, Hepatospenomegaly, Mass Extremity Exam: Negative: Clubbing, Cyanosis, Edema Assessment /Plan Problems (1) Neurological muscle weakness Status: Acute Response to Treatment: Stable Problem Text: pt today on exam was arousable to verbal stimuli but seemed very fatigue and would close his eyes quickly after opening them his answers to questioning are incomprehensible and seemingly non-sense. Unsure if he is able to accurately understand what is being asked of him. Neurology has been consulted-greatly appreciate their recommendations - will reduce dose of gabapentin to 200 mg BID due to sedation of pt., will also start Keppra 250 mg BID for his myoclonus. Will begin B12 1000 mcg IM for potential neuropathy from low/normal levels. Awaiting addendum of bony structures to soft CT of Cervical neck done one day ago evaluating for potential stenosis. PT will continue to work with pt to see if he is able to safely go home, will need Thalia lift. Note PAST EEG showed encephalopathy likely 2/2 patients baseline dementia. Thoracic spine CT showed: The vertebral bodies are in satisfactory positioning and alignment. No fractures or dislocations are demonstrated. Intervertebral disc spaces are well- maintained. There is no evidence of facet subluxation. The neural foramen appear grossly patent. The spinal canal demonstrates normal caliber and contour without evidence of spinal stenosis. The surrounding soft tissues are within normal limits. Impression: No acute abnormalities appreciated. Lumbar spine CT showed: 1. No acute fracture or traumatic injury. 2. Large disc osteophyte complex and disc bulge at L5/S1, causing mild central canal stenosis and bilateral neural foraminal narrowing. 3. Broad disc bulge at L4/L5, without evidence of central canal stenosis. Neck CT showed initially: Impression: Unremarkable CT examination of the soft tissues of the neck. Mild facet arthropathy in the cervical spine. Again awaiting addendum for bony read out. HEAD CT showed: Impression: Age related atrophy and microvascular ischemic changes. No acute intracranial hemorrhage, infarction, or mass/mass effect. (2) Hyperthyroidism Problem Text: TSH low and FT4 up; check TSI for Graves and ultrasound for nodules; HR currently controlled (3) CKD (chronic kidney disease), stage III Status: Chronic Response to Treatment: Stable Problem Text: GFR currently 45 and is stable would continue to avoid NSAIDS and nephrotoxic drugs and IV contrast and dose adjust medications for renal insufficiency (4) Hypertension Status: Chronic Response to Treatment: Stable Problem Text: 117/66 stable will c/w home atenolol (5) Hyperlipidemia Status: Chronic Response to Treatment: Stable Problem Text: c/w pravastatin (6) AAA (abdominal aortic aneurysm) Status: Chronic Response to Treatment: Stable Problem Text: 34 x 37 mm as of January 2016-no further workup at family request (7) Pacemaker Status: Chronic Response to Treatment: Stable Problem Text: unable to order MRI (8) DVT prophylaxis Status: Acute Response to Treatment: Stable Problem Text: c/w lovenox Plan/VTE VTE Prophylaxis Ordered?: Yes VS, I&O, 24H, Fishbone Vital Signs/I&O Vital Signs Date Time Temp Pulse Resp B/P (MAP) Pulse Ox O2 Delivery O2 Flow Rate FiO2 04/24/17 06:00 97.5 92 18 117/66 (83) 92 Room Air I&O- Last 24 Hours up to 6 AM 04/24/17 05:59 Intake Total 440 ml Output Total 0 ml Balance 440 ml Laboratory Data 24H LABS Laboratory Tests 2 04/23/17 11:01: Urine Appearance CLEAR, Urine Color YELLOW, Urine pH 5.0, Urine Specific [place] 1.012, Urine Protein NEGATIVE, Urine Glucose (UA) NEGATIVE, Urine Ketones NEGATIVE, Urine Urobilinogen 0.2, Urine Bilirubin NEGATIVE, Urine Leukocyte Esterase NEGATIVE, Urine Blood NEGATIVE, Urine Nitrite NEGATIVE, Urine WBC (Auto) 1, Urine RBC (Auto) 3, Urine Hyaline Casts (Auto) 0, Urine Bacteria (Auto) 1+H, Urine Squamous Epithelial Cells 0, Urine Sperm (Auto) 04/24/17 05:43: Anion Gap 6L, Glomerular Filtration Rate 50.5, Blood Urea Nitrogen 21H, Creatinine 1.43H, Sodium Level 135L, Potassium Level 3.9, Chloride Level 102, Carbon Dioxide Level 27, Calcium Level 8.5L, Magnesium Level 2.1, Thyroid Stimulating Hormone (TSH) 0.127L CBC/BMP Laboratory Tests 04/24/17 05:43 Red Blood Count 3.37 L, Mean Corpuscular Volume 91.6, Mean Corpuscular Hemoglobin 31.2, Mean Corpuscular Hemoglobin Concent 34.0, Red Cell Distribution Width 12.3, Calcium Level 8.5 L Microbiology Microbiology 04/23/17 Urine Culture - Final, Complete GME ATTESTATION GME ATTESTATION My preceptor for this patient encounter was physically present in the building during the encounter and was fully available. As needed, all aspects of the patient interview, examination, medical decision making process, and medical care plan development were reviewed and approved by the preceptor. Preceptor is aware and concurs with the plan as stated in the body of this note and will attest to such by his/her cosignature. KYLE RUBIN DO Apr 24, 2017 11:23 DELFINA CHO Apr 24, 2017 15:29
[2017-04-24] MEDS: levETIRAcetam 250MG TABLET (KEPPRA) PO SCH ×2 (12:30→20:59)
[2017-04-24 14:00] VITALS: BP 127/60
[2017-04-24] MEDS: ACETAMINOPHEN 325 MG TAB PO PRN ×2 (16:26→20:59)
--- NOTE | 2017-04-24 17:23 | REP ---
THYROID ULTRASOUND: Real-time sonographic evaluation of the thyroid is performed. Both lobes are relatively normal in size, right lobe measuring 3.9 x 1.6 x 1.3 cm. Left lobe 3.8 x 1.3 x 1.3 cm. There is a 2 mm cyst in the mid to lower right lobe. No other cystic or solid nodules seen. IMPRESSION: Essentially unremarkable thyroid ultrasound. Signed by Syed Levy MD 04/25/2017 01:44 P
[2017-04-24 18:00] VITALS: BP 108/58
[2017-04-24] MEDS: GABAPENTIN 100 MG CAP PO SCH (20:59)
[2017-04-24] MEDS: DONEPEZIL 5 MG TAB PO SCH (20:59)
[2017-04-24] MEDS: PRAVASTATIN 20 MG TAB PO SCH (20:59)
[2017-04-24 22:00] VITALS: BP 100/56
[2017-04-25] MEDS: ACETAMINOPHEN 325 MG TAB PO PRN ×3 (06:05→15:25)
[2017-04-25 06:39] LABS: MEAN CORPUSCULAR HEMOGLOBIN 31.5 pg (27.0-33.0); MEAN CORPUSCULAR HGB CONC 34.4 g/dl (32.0-36.5); MEAN CORPUSCULAR VOLUME 91.6 fl (80.0-96.0); RED CELL DISTRIBUTION WIDTH 11.8 % (11.5-14.5); WHITE BLOOD COUNT 5.8 K/mm3 (4.0-10.0)
[2017-04-25 06:53] LABS: CREATININE FOR GFR 1.42 MG/DL (0.70-1.30); GLOMERULAR FILTRATION RATE 50.9 (>35); MAGNESIUM LEVEL 2.1 MG/DL (1.8-2.4); POTASSIUM SERUM 3.8 MEQ/L (3.5-5.1)
[2017-04-25] MEDS: GABAPENTIN 100 MG CAP PO SCH ×2 (08:23→20:10)
[2017-04-25] MEDS: ASPIRIN 81 MG ENTERIC TAB PO SCH (08:24)
[2017-04-25] MEDS: levETIRAcetam 250MG TABLET (KEPPRA) PO SCH ×2 (08:24→20:10)
[2017-04-25] MEDS: FINASTERIDE 5 MG TAB PO SCH (08:24)
[2017-04-25] MEDS: ENOXAPARIN 30 MG/0.3 ML SYR (J1650) SC SCH (08:30)
--- NOTE | 2017-04-25 12:23 | IPNPDOC ---
Subjective Date Seen The patient was seen on 04/25/17. Subjective Chief Complaint/HPI The patient is a 81-year-old male admitted with a reason for visit of Frequent Falls Neurological Muscle Weakness. General: Reports: ROS Unobtainable (pt unfortunately is unable to be understood with receptive aphasia), Denies: Chills, Night Sweats Objective Physical Examination General Exam: Positive: No Acute Distress, Negative: Alert (pt is a lot more alert today, sitting upright in bed and seems comfortable) Eye Exam: Positive: PERRLA, Conjunctiva & lids normal, EOMI, Negative: Sclera icteric ENT Exam: Positive: Atraumatic Chest Exam: Positive: Clear to auscultation, Normal air movement, Negative: Rales, Rhonchi, Wheezing, Diminished Heart Exam: Positive: Rate Normal, Normal S1, Normal S2, Negative: Murmurs, Rubs Abdomen Exam: Positive: Normal bowel sounds, Soft, Negative: Tenderness, Hepatospenomegaly, Mass Extremity Exam: Negative: Clubbing, Cyanosis, Edema Skin Exam: Negative: Rash Assessment /Plan Problems (1) Neurological muscle weakness Status: Acute Response to Treatment: Stable Problem Text: pt today on exam was a lot more alert than one day ago, was sitting up in bed and seemed comfortable his answers to questioning continue to be incomprehensible and seemingly non- sense. Still unsure if he is able to accurately understand what is being asked of him. 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 Have started B12 1000 mcg IM for potential neuropathy from low/normal levels. Currently still addendum of bony structures to soft CT of Cervical neck done one day ago evaluating for potential stenosis- will speak to radiology again. Pt's family have voiced concern over not being able to care for him at home, will thus be working with PFS for placement. The pt seems to demonstrate impulsive movements and a Thalia lift is felt even to be too dangerous based upon this. Note PAST EEG showed encephalopathy likely 2/2 patients baseline dementia. Thoracic spine CT showed: The vertebral bodies are in satisfactory positioning and alignment. No fractures or dislocations are demonstrated. Intervertebral disc spaces are well- maintained. There is no evidence of facet subluxation. The neural foramen appear grossly patent. The spinal canal demonstrates normal caliber and contour without evidence of spinal stenosis. The surrounding soft tissues are within normal limits. Impression: No acute abnormalities appreciated. Lumbar spine CT showed: 1. No acute fracture or traumatic injury. 2. Large disc osteophyte complex and disc bulge at L5/S1, causing mild central canal stenosis and bilateral neural foraminal narrowing. 3. Broad disc bulge at L4/L5, without evidence of central canal stenosis. Neck CT showed initially: Impression: Unremarkable CT examination of the soft tissues of the neck. Mild facet arthropathy in the cervical spine. Again awaiting addendum for bony read out. HEAD CT showed: Impression: Age related atrophy and microvascular ischemic changes. No acute intracranial hemorrhage, infarction, or mass/mass effect. (2) Hyperthyroidism Problem Text: TSH low and FT4 up; check TSI for Graves and ultrasound for nodules; HR currently controlled (3) CKD (chronic kidney disease), stage III Status: Chronic Response to Treatment: Stable Problem Text: GFR currently 45 and is stable would continue to avoid NSAIDS and nephrotoxic drugs and IV contrast and dose adjust medications for renal insufficiency (4) Urinary retention Status: Acute Response to Treatment: Stable Problem Text: unfortunately last night pt was acting as if he had abdominal pain, nursing bladder scanned and found 620 mL. Bladder scan q6h and intermittent cath was ordered. The pt still continues to retain urine today, will place sales cath. and continue to monitor output. (5) Hypertension Status: Chronic Response to Treatment: Stable Problem Text: 100/56 stable will c/w home atenolol (6) Hyperlipidemia Status: Chronic Response to Treatment: Stable Problem Text: c/w pravastatin (7) AAA (abdominal aortic aneurysm) Status: Chronic Response to Treatment: Stable Problem Text: 34 x 37 mm as of January 2016-no further workup at family request (8) Pacemaker Status: Chronic Response to Treatment: Stable Problem Text: unable to order MRI (9) DVT prophylaxis Status: Acute Response to Treatment: Stable Problem Text: c/w lovenox Plan/VTE VTE Prophylaxis Ordered?: Yes Plan/Urinary Catheter Reason for insertion/continuin: Acute obstruct/retention VS, I&O, 24H, Fishbone Vital Signs/I&O Vital Signs Date Time Temp Pulse Resp B/P (MAP) Pulse Ox O2 Delivery O2 Flow Rate FiO2 04/24/17 22:00 98.8 60 16 100/56 (71) 96 Room Air I&O- Last 24 Hours up to 6 AM 04/25/17 06:00 Intake Total 680 ml Output Total 2400 ml Balance -1720 ml Laboratory Data 24H LABS Laboratory Tests 2 04/25/17 05:59: Anion Gap 8, Glomerular Filtration Rate 50.9, Blood Urea Nitrogen 21H, Creatinine 1.42H, Sodium Level 140, Potassium Level 3.8, Chloride Level 106, Carbon Dioxide Level 26, Calcium Level 9.0, Magnesium Level 2.1 CBC/BMP Laboratory Tests 04/25/17 05:59 Red Blood Count 3.64 L, Mean Corpuscular Volume 91.6, Mean Corpuscular Hemoglobin 31.5, Mean Corpuscular Hemoglobin Concent 34.4, Red Cell Distribution Width 11.8, Calcium Level 9.0 Microbiology Microbiology 04/23/17 Urine Culture - Final, Complete GME ATTESTATION GME ATTESTATION My preceptor for this patient encounter was physically present in the building during the encounter and was fully available. As needed, all aspects of the patient interview, examination, medical decision making process, and medical care plan development were reviewed and approved by the preceptor. Preceptor is aware and concurs with the plan as stated in the body of this note and will attest to such by his/her cosignature. KYLE RUBIN DO Apr 25, 2017 12:23
[2017-04-25] MEDS: PRAVASTATIN 20 MG TAB PO SCH (20:10)
[2017-04-25] MEDS: DONEPEZIL 5 MG TAB PO SCH (20:11)
[2017-04-25 22:00] VITALS: BP 118/69
[2017-04-26] MEDS: ACETAMINOPHEN 325 MG TAB PO PRN (03:03)
[2017-04-26 06:00] VITALS: BP 122/72
[2017-04-26 06:56] LABS: MEAN CORPUSCULAR HEMOGLOBIN 31.9 pg (27.0-33.0); MEAN CORPUSCULAR HGB CONC 35.1 g/dl (32.0-36.5); MEAN CORPUSCULAR VOLUME 90.8 fl (80.0-96.0); RED CELL DISTRIBUTION WIDTH 11.8 % (11.5-14.5); WHITE BLOOD COUNT 5.2 K/mm3 (4.0-10.0)
[2017-04-26 07:05] LABS: CREATININE FOR GFR 1.43 MG/DL (0.70-1.30); GLOMERULAR FILTRATION RATE 50.5 (>35); MAGNESIUM LEVEL 2.3 MG/DL (1.8-2.4); POTASSIUM SERUM 3.7 MEQ/L (3.5-5.1)
[2017-04-26 08:21] VITALS: BP 119/75
[2017-04-26] MEDS: ASPIRIN 81 MG ENTERIC TAB PO SCH (08:45)
[2017-04-26] MEDS: levETIRAcetam 250MG TABLET (KEPPRA) PO SCH ×2 (08:45→20:31)
[2017-04-26] MEDS: FINASTERIDE 5 MG TAB PO SCH (08:45)
[2017-04-26] MEDS: GABAPENTIN 100 MG CAP PO SCH ×2 (08:45→20:31)
[2017-04-26] MEDS: ENOXAPARIN 30 MG/0.3 ML SYR (J1650) SC SCH (08:46)
--- NOTE | 2017-04-26 10:25 | IPNPDOC ---
Subjective Date Seen The patient was seen on 04/26/17. Subjective Chief Complaint/HPI The patient is a 81-year-old male admitted with a reason for visit of Frequent Falls Neurological Muscle Weakness. General: Reports: ROS Unobtainable (pt was able to communicate to some questions on exam, due to receptive aphasia most of the ROS was incomprehensible ), Denies: Night Sweats Pulmonary: Denies: Dyspnea, Cough Cardiovascular: Denies: Chest Pain Neurological: Denies: Weakness Objective Physical Examination General Exam: Positive: No Acute Distress, Negative: Alert (pt is alert today, sitting in a chair at bedside with a sitter) Eye Exam: Positive: PERRLA, Conjunctiva & lids normal, EOMI, Negative: Sclera icteric ENT Exam: Positive: Atraumatic Chest Exam: Positive: Clear to auscultation, Normal air movement, Negative: Rales, Rhonchi, Wheezing, Diminished Heart Exam: Positive: Rate Normal, Normal S1, Normal S2, Negative: Murmurs, Rubs Abdomen Exam: Positive: Normal bowel sounds, Soft, Negative: Tenderness, Hepatospenomegaly, Mass Extremity Exam: Negative: Clubbing, Cyanosis, Edema Skin Exam: Negative: Rash Assessment /Plan Problems (1) Neurological muscle weakness Status: Acute Response to Treatment: Stable Problem Text: pt today on exam was alert was was sitting in bedside chair with a sitter his answers to some questioning on ROS were comprehensible, however most of ROS due to receptive aphasia was incomprehensible and seemingly non-sense. Still unsure if he is able to accurately understand what is being asked of him Neurology has been consulted-greatly appreciate their recommendations will c/w gabapentin 200 mg BID due to sedation of pt. 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 The pt seems to demonstrate impulsive movements and a Thalia lift is felt even to be too dangerous based upon this. Note PAST EEG showed encephalopathy likely 2/2 patients baseline dementia. Thoracic spine CT showed: The vertebral bodies are in satisfactory positioning and alignment. No fractures or dislocations are demonstrated. Intervertebral disc spaces are well- maintained. There is no evidence of facet subluxation. The neural foramen appear grossly patent. The spinal canal demonstrates normal caliber and contour without evidence of spinal stenosis. The surrounding soft tissues are within normal limits. Impression: No acute abnormalities appreciated. Lumbar spine CT showed: 1. No acute fracture or traumatic injury. 2. Large disc osteophyte complex and disc bulge at L5/S1, causing mild central canal stenosis and bilateral neural foraminal narrowing. 3. Broad disc bulge at L4/L5, without evidence of central canal stenosis. Neck CT showed initially: Impression: Unremarkable CT examination of the soft tissues of the neck. Mild facet arthropathy in the cervical spine. Again awaiting addendum for bony read out. HEAD CT showed: Impression: Age related atrophy and microvascular ischemic changes. No acute intracranial hemorrhage, infarction, or mass/mass effect. 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 sales with output of 1650 mL in 24 hour period (5) Hypertension Status: Chronic Response to Treatment: Stable Problem Text: 119/75 stable will c/w home atenolol (6) Hyperlipidemia Status: Chronic Response to Treatment: Stable Problem Text: c/w pravastatin (7) AAA (abdominal aortic aneurysm) Status: Chronic Response to Treatment: Stable Problem Text: 34 x 37 mm as of January 2016-no further workup at family request (8) Delirium Status: Acute Response to Treatment: Stable Problem Text: unfortunately the pt did not have a good night, as per nursing staff he was very agitated, getting out of bed and attempting to pull out his IV lines Have ordered sitter will add on risperidone for the pt to be more comfortable at night (9) Pacemaker Status: Chronic Response to Treatment: Stable Problem Text: unable to order MRI (10) DVT prophylaxis Status: Acute Response to Treatment: Stable Problem Text: c/w lovenox Plan/VTE VTE Prophylaxis Ordered?: Yes Plan/Urinary Catheter Reason for insertion/continuin: Acute obstruct/retention VS, I&O, 24H, Fishbone Vital Signs/I&O Vital Signs Date Time Temp Pulse Resp B/P (MAP) Pulse Ox O2 Delivery O2 Flow Rate FiO2 04/26/17 08:21 96.2 95 17 119/75 (90) 95 Room Air Laboratory Data 24H LABS Laboratory Tests 2 04/26/17 06:40: Anion Gap 7L, Glomerular Filtration Rate 50.5, Blood Urea Nitrogen 20H, Creatinine 1.43H, Sodium Level 139, Potassium Level 3.7, Chloride Level 106, Carbon Dioxide Level 26, Calcium Level 9.0, Magnesium Level 2.3 CBC/BMP Laboratory Tests 04/26/17 06:40 Red Blood Count 3.91 L, Mean Corpuscular Volume 90.8, Mean Corpuscular Hemoglobin 31.9, Mean Corpuscular Hemoglobin Concent 35.1, Red Cell Distribution Width 11.8, Calcium Level 9.0 Microbiology Microbiology 04/23/17 Urine Culture - Final, Complete GME ATTESTATION GME ATTESTATION My preceptor for this patient encounter was physically present in the building during the encounter and was fully available. As needed, all aspects of the patient interview, examination, medical decision making process, and medical care plan development were reviewed and approved by the preceptor. Preceptor is aware and concurs with the plan as stated in the body of this note and will attest to such by his/her cosignature. KYLE RUBIN DO Apr 26, 2017 10:25
[2017-04-26] MEDS ORDERED: risperiDONE 0.25 MG TAB PO SCH (12:00)
[2017-04-26 14:15] VITALS: BP 125/64
[2017-04-26] MEDS: PRAVASTATIN 20 MG TAB PO SCH (20:31)
[2017-04-26] MEDS: risperiDONE 0.25 MG TAB PO SCH (20:31)
[2017-04-26] MEDS: DONEPEZIL 5 MG TAB PO SCH (20:31)
[2017-04-26 22:00] VITALS: BP 118/66
[2017-04-27 06:00] VITALS: BP 116/68
[2017-04-27 06:17] LABS: MEAN CORPUSCULAR HEMOGLOBIN 31.9 pg (27.0-33.0); MEAN CORPUSCULAR HGB CONC 35.5 g/dl (32.0-36.5); MEAN CORPUSCULAR VOLUME 89.9 fl (80.0-96.0); RED CELL DISTRIBUTION WIDTH 11.7 % (11.5-14.5); WHITE BLOOD COUNT 5.4 K/mm3 (4.0-10.0)
[2017-04-27 06:29] LABS: CALCIUM LEVEL 9.1 MG/DL (8.8-10.2); CREATININE FOR GFR 1.33 MG/DL (0.70-1.30); GLOMERULAR FILTRATION RATE 54.9 (>35); MAGNESIUM LEVEL 1.9 MG/DL (1.8-2.4); POTASSIUM SERUM 3.7 MEQ/L (3.5-5.1)
[2017-04-27] MEDS: ASPIRIN 81 MG ENTERIC TAB PO SCH (08:44)
[2017-04-27] MEDS: levETIRAcetam 250MG TABLET (KEPPRA) PO SCH ×2 (08:44→21:00)
[2017-04-27] MEDS: GABAPENTIN 100 MG CAP PO SCH ×2 (08:44→21:00)
[2017-04-27] MEDS: FINASTERIDE 5 MG TAB PO SCH (08:44)
[2017-04-27] MEDS: ENOXAPARIN 30 MG/0.3 ML SYR (J1650) SC SCH (08:45)
--- NOTE | 2017-04-27 08:51 | IPNPDOC ---
Subjective Date Seen The patient was seen on 04/27/17. Subjective Chief Complaint/HPI The patient is a 81-year-old male admitted with a reason for visit of Frequent Falls Neurological Muscle Weakness. General: Reports: ROS Unobtainable (unfortunately, according to nursing staff, pt was awake most of the night and only slept about 45 mins., as such he was very fatigued on exam today and did not want to attempt to answer any ROS) Objective Physical Examination General Exam: Positive: No Acute Distress, Negative: Alert (very fatigued today, laying in bed with eyes closed trying to sleep) Eye Exam: Positive: PERRLA, Conjunctiva & lids normal, EOMI, Negative: Sclera icteric ENT Exam: Positive: Atraumatic Chest Exam: Positive: Clear to auscultation, Normal air movement, Negative: Rales, Rhonchi, Wheezing, Diminished Heart Exam: Positive: Rate Normal, Normal S1, Normal S2, Negative: Murmurs, Rubs Abdomen Exam: Positive: Normal bowel sounds, Soft, Negative: Tenderness, Hepatospenomegaly, Mass Extremity Exam: Negative: Clubbing, Cyanosis, Edema Skin Exam: Negative: Rash Assessment /Plan Problems (1) Neurological muscle weakness Status: Acute Response to Treatment: Stable Problem Text: pt today on exam was very fatigued from not sleeping last night, apparently according to nursing staff he was awake most of the night and slept for about 45 minutes, as such he was very tired and closing his eyes on exam- Neuro check q4h his answers to ROS were unobtainable secondary to above Still unsure if he is able to accurately understand what is being asked of him Neurology has been consulted-greatly appreciate their recommendations will c/w gabapentin 200 mg BID due to sedation of pt. 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 The pt. has demonstrated impulsive movements while on this stay and it was deemed by PT that a Thalia lift is felt even to be too dangerous based upon this Note PAST EEG showed encephalopathy likely 2/2 patients baseline dementia. Thoracic spine CT showed: The vertebral bodies are in satisfactory positioning and alignment. No fractures or dislocations are demonstrated. Intervertebral disc spaces are well- maintained. There is no evidence of facet subluxation. The neural foramen appear grossly patent. The spinal canal demonstrates normal caliber and contour without evidence of spinal stenosis. The surrounding soft tissues are within normal limits. Impression: No acute abnormalities appreciated. Lumbar spine CT showed: 1. No acute fracture or traumatic injury. 2. Large disc osteophyte complex and disc bulge at L5/S1, causing mild central canal stenosis and bilateral neural foraminal narrowing. 3. Broad disc bulge at L4/L5, without evidence of central canal stenosis. Neck CT showed initially: Impression: Unremarkable CT examination of the soft tissues of the neck. Mild facet arthropathy in the cervical spine. Again awaiting addendum for bony read out. HEAD CT showed: Impression: Age related atrophy and microvascular ischemic changes. No acute intracranial hemorrhage, infarction, or mass/mass effect. (2) Hyperthyroidism Problem Text: TSH low and FT4 up; thyroid u/s was normal awaiting TSI antibodies awaiting results of radioactive uptake scan HR controlled-as pt is asx will continue to monitor (3) CKD (chronic kidney disease), stage III Status: Chronic Response to Treatment: Stable Problem Text: GFR currently 45 and is stable would continue to avoid NSAIDS and nephrotoxic drugs and IV contrast and dose adjust medications for renal insufficiency creatine one day ago was 1.4, is currently 1.3 (4) Urinary retention Status: Acute Response to Treatment: Stable Problem Text: Pt. has sales with output of 1000 mL in 24 hour period (5) Hypertension Status: Chronic Response to Treatment: Stable Problem Text: 116/68 stable will c/w home atenolol (6) Hyperlipidemia Status: Chronic Response to Treatment: Stable Problem Text: c/w pravastatin (7) AAA (abdominal aortic aneurysm) Status: Chronic Response to Treatment: Stable Problem Text: 34 x 37 mm as of January 2016-no further workup at family request (8) Delirium Status: Acute Response to Treatment: Stable Problem Text: unfortunately the pt did not have a good night last night and was awake for most of it apparently according to nursing staff he only slept for 45 minutes Pt did receive .25 mg of Risperidone last night, could add on one time dose of additional .25 risperidone if he is agitated again tonight On this admission he has been getting out of bed and attempting to pull out his IV lines Continue with sitter pt has .25 QHSP scheduled risperidone for the pt to be more comfortable at night (9) Pacemaker Status: Chronic Response to Treatment: Stable Problem Text: unable to order MRI (10) DVT prophylaxis Status: Acute Response to Treatment: Stable Problem Text: c/w lovenox Plan/VTE VTE Prophylaxis Ordered?: Yes Plan/Urinary Catheter Reason for insertion/continuin: Acute obstruct/retention VS, I&O, 24H, Fishbone Vital Signs/I&O Vital Signs Date Time Temp Pulse Resp B/P (MAP) Pulse Ox O2 Delivery O2 Flow Rate FiO2 04/27/17 06:00 97.2 77 18 116/68 (84) 97 Room Air Laboratory Data 24H LABS Laboratory Tests 2 04/27/17 05:42: Anion Gap 10, Glomerular Filtration Rate 54.9, Blood Urea Nitrogen 21H, Creatinine 1.33H, Sodium Level 143, Potassium Level 3.7, Chloride Level 107, Carbon Dioxide Level 26, Calcium Level 9.1, Magnesium Level 1.9 CBC/BMP Laboratory Tests 04/27/17 05:42 Red Blood Count 3.68 L, Mean Corpuscular Volume 89.9, Mean Corpuscular Hemoglobin 31.9, Mean Corpuscular Hemoglobin Concent 35.5, Red Cell Distribution Width 11.7, Calcium Level 9.1 Microbiology Microbiology 04/23/17 Urine Culture - Final, Complete GME ATTESTATION GME ATTESTATION My preceptor for this patient encounter was physically present in the building during the encounter and was fully available. As needed, all aspects of the patient interview, examination, medical decision making process, and medical care plan development were reviewed and approved by the preceptor. Preceptor is aware and concurs with the plan as stated in the body of this note and will attest to such by his/her cosignature. KYLE RUBIN DO Apr 27, 2017 08:51
[2017-04-27 10:00] VITALS: BP 121/70
[2017-04-27 14:00] VITALS: BP 107/65
[2017-04-27] MEDS: PRAVASTATIN 20 MG TAB PO SCH (20:59)
[2017-04-27] MEDS: risperiDONE 0.25 MG TAB PO SCH (20:59)
[2017-04-27] MEDS: DONEPEZIL 5 MG TAB PO SCH (20:59)
[2017-04-27 22:00] VITALS: BP 121/70
[2017-04-28 02:00] VITALS: BP 114/68
[2017-04-28 06:00] VITALS: BP 129/77
[2017-04-28 06:42] LABS: MEAN CORPUSCULAR HEMOGLOBIN 32.7 pg (27.0-33.0); MEAN CORPUSCULAR HGB CONC 36.5 g/dl (32.0-36.5); MEAN CORPUSCULAR VOLUME 89.7 fl (80.0-96.0); RED CELL DISTRIBUTION WIDTH 11.6 % (11.5-14.5)
[2017-04-28 06:53] LABS: CALCIUM LEVEL 8.9 MG/DL (8.8-10.2); CREATININE FOR GFR 1.31 MG/DL (0.70-1.30); GLOMERULAR FILTRATION RATE 55.9 (>35); MAGNESIUM LEVEL 2.1 MG/DL (1.8-2.4); POTASSIUM SERUM 4.1 MEQ/L (3.5-5.1)
[2017-04-28] MEDS: FINASTERIDE 5 MG TAB PO SCH (09:46)
[2017-04-28] MEDS: ASPIRIN 81 MG ENTERIC TAB PO SCH (09:46)
[2017-04-28] MEDS: GABAPENTIN 100 MG CAP PO SCH ×2 (09:46→20:25)
[2017-04-28] MEDS: levETIRAcetam 250MG TABLET (KEPPRA) PO SCH ×2 (09:46→20:25)
--- NOTE | 2017-04-28 09:57 | IPNPDOC ---
Subjective Date Seen The patient was seen on 04/28/17. Subjective Chief Complaint/HPI The patient is a 81-year-old male admitted with a reason for visit of Frequent Falls Neurological Muscle Weakness. General: Reports: ROS Unobtainable (pt is alert but is not orientated, is not able to participate in ROS as his answers are incomprehensible) Objective Physical Examination General Exam: Positive: No Acute Distress, Negative: Alert (pt is alert, sitting in bedside chair watching television, had just finished his breakfast) Eye Exam: Positive: PERRLA, Conjunctiva & lids normal, EOMI, Negative: Sclera icteric ENT Exam: Positive: Atraumatic Chest Exam: Positive: Clear to auscultation, Normal air movement, Negative: Rales, Rhonchi, Wheezing, Diminished Heart Exam: Positive: Rate Normal, Normal S1, Normal S2, Negative: Murmurs, Rubs Abdomen Exam: Positive: Normal bowel sounds, Soft, Negative: Tenderness, Hepatospenomegaly, Mass Extremity Exam: Negative: Clubbing, Cyanosis, Edema Skin Exam: Negative: Rash Assessment /Plan Problems (1) Neurological muscle weakness Status: Acute Response to Treatment: Stable Problem Text: pt today on exam was alert and sitting upright in beside chair watching television, did not seem in distress will c/w Neuro check q4h his answers to ROS were unobtainable today secondary to above Still unsure if he is able to accurately understand what is being asked of him Neurology has been consulted-greatly appreciate their recommendations will c/w gabapentin 200 mg BID due to sedation of pt. 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 The pt. has demonstrated impulsive movements while on this stay and it was deemed by PT that a Thalia lift is felt even to be too dangerous based upon this Note PAST EEG showed encephalopathy likely 2/2 patients baseline dementia. Thoracic spine CT showed: The vertebral bodies are in satisfactory positioning and alignment. No fractures or dislocations are demonstrated. Intervertebral disc spaces are well- maintained. There is no evidence of facet subluxation. The neural foramen appear grossly patent. The spinal canal demonstrates normal caliber and contour without evidence of spinal stenosis. The surrounding soft tissues are within normal limits. Impression: No acute abnormalities appreciated. Lumbar spine CT showed: 1. No acute fracture or traumatic injury. 2. Large disc osteophyte complex and disc bulge at L5/S1, causing mild central canal stenosis and bilateral neural foraminal narrowing. 3. Broad disc bulge at L4/L5, without evidence of central canal stenosis. Neck CT showed initially: Impression: Unremarkable CT examination of the soft tissues of the neck. Mild facet arthropathy in the cervical spine. Again awaiting addendum for bony read out. HEAD CT showed: Impression: Age related atrophy and microvascular ischemic changes. No acute intracranial hemorrhage, infarction, or mass/mass effect. (2) Hyperthyroidism Problem Text: TSH low and FT4 up; thyroid u/s was normal awaiting TSI antibodies awaiting results of radioactive uptake scan HR controlled-as pt is asx. will continue to monitor (3) CKD (chronic kidney disease), stage III Status: Chronic Response to Treatment: Stable Problem Text: GFR currently 55.9 and is stable would continue to avoid NSAIDS and nephrotoxic drugs and IV contrast and dose adjust medications for renal insufficiency creatine currently 1.31 (4) Urinary retention Status: Acute Response to Treatment: Stable Problem Text: Pt. has sales with output of 900 mL in 24 hour period (5) Hypertension Status: Chronic Response to Treatment: Stable Problem Text: 129/77 stable will c/w home atenolol (6) Hyperlipidemia Status: Chronic Response to Treatment: Stable Problem Text: c/w pravastatin (7) AAA (abdominal aortic aneurysm) Status: Chronic Response to Treatment: Stable Problem Text: 34 x 37 mm as of January 2016-no further workup at family request (8) Delirium Status: Acute Response to Treatment: Stable Problem Text: the pt. did well overnight, no incidents reported by nursing staff Will continue .25 mg of Risperidone at night, could add on one time dose of additional .25 risperidone if he is agitated again tonight On this admission he has been getting out of bed and attempting to pull out his IV lines Continue with sitter (9) Pacemaker Status: Chronic Response to Treatment: Stable Problem Text: unable to order MRI (10) DVT prophylaxis Status: Acute Response to Treatment: Stable Problem Text: c/w lovenox Plan/VTE VTE Prophylaxis Ordered?: Yes Plan/Urinary Catheter Reason for insertion/continuin: Acute obstruct/retention VS, I&O, 24H, Fishbone Vital Signs/I&O Vital Signs Date Time Temp Pulse Resp B/P (MAP) Pulse Ox O2 Delivery O2 Flow Rate FiO2 04/28/17 06:00 97.2 75 15 129/77 (94) 95 Room Air Laboratory Data 24H LABS Laboratory Tests 2 04/28/17 06:19: Anion Gap 7L, Glomerular Filtration Rate 55.9, Blood Urea Nitrogen 18, Creatinine 1.31H, Sodium Level 142, Potassium Level 4.1, Chloride Level 107, Carbon Dioxide Level 28, Calcium Level 8.9, Magnesium Level 2.1 CBC/BMP Laboratory Tests 04/28/17 06:19 Red Blood Count 3.53 L, Mean Corpuscular Volume 89.7, Mean Corpuscular Hemoglobin 32.7, Mean Corpuscular Hemoglobin Concent 36.5, Red Cell Distribution Width 11.6, Calcium Level 8.9 Microbiology Microbiology 04/23/17 Urine Culture - Final, Complete GME ATTESTATION GME ATTESTATION My preceptor for this patient encounter was physically present in the building during the encounter and was fully available. As needed, all aspects of the patient interview, examination, medical decision making process, and medical care plan development were reviewed and approved by the preceptor. Preceptor is aware and concurs with the plan as stated in the body of this note and will attest to such by his/her cosignature. KYLE RUBIN DO Apr 28, 2017 09:57
--- NOTE | 2017-04-28 12:08 | REP ---
Radionuclide thyroid scan and uptake: The study is performed with 437 microcuries of I-123. Thyroid scan: Study is correlated with the thyroid ultrasound dated 04/24/2017. There is poor uptake throughout the left lobe of the thyroid gland. There is homogeneous uptake in the right lobe. 24 are thyroid uptake is 3.21%. This is markedly low. Normal 24 our uptake is 25-35%. Impression: Poor uptake throughout the left lobe of the thyroid. Markedly low thyroid uptake. Signed by Syed Infante MD 04/28/2017 12:00 P
[2017-04-28 14:00] VITALS: BP 108/57
[2017-04-28] MEDS: ENOXAPARIN 30 MG/0.3 ML SYR (J1650) SC SCH (17:21)
[2017-04-28] MEDS: DONEPEZIL 5 MG TAB PO SCH (20:25)
[2017-04-28] MEDS: risperiDONE 0.25 MG TAB PO SCH (20:25)
[2017-04-28] MEDS: PRAVASTATIN 20 MG TAB PO SCH (20:25)
[2017-04-28 22:00] VITALS: BP 133/72
[2017-04-29 06:00] VITALS: BP 139/75
[2017-04-29 06:12] LABS: MEAN CORPUSCULAR HEMOGLOBIN 31.7 pg (27.0-33.0); MEAN CORPUSCULAR HGB CONC 34.9 g/dl (32.0-36.5); MEAN CORPUSCULAR VOLUME 90.8 fl (80.0-96.0); RED CELL DISTRIBUTION WIDTH 11.7 % (11.5-14.5); WHITE BLOOD COUNT 5.9 K/mm3 (4.0-10.0)
[2017-04-29 06:29] LABS: CALCIUM LEVEL 8.5 MG/DL (8.8-10.2); CREATININE FOR GFR 1.32 MG/DL (0.70-1.30); GLOMERULAR FILTRATION RATE 55.4 (>35); MAGNESIUM LEVEL 2.1 MG/DL (1.8-2.4); POTASSIUM SERUM 3.9 MEQ/L (3.5-5.1)
[2017-04-29] MEDS: ASPIRIN 81 MG ENTERIC TAB PO SCH (09:09)
[2017-04-29] MEDS: FINASTERIDE 5 MG TAB PO SCH (09:09)
[2017-04-29] MEDS: levETIRAcetam 250MG TABLET (KEPPRA) PO SCH ×2 (09:09→20:08)
[2017-04-29] MEDS: GABAPENTIN 100 MG CAP PO SCH ×2 (09:09→20:08)
[2017-04-29] MEDS: ENOXAPARIN 30 MG/0.3 ML SYR (J1650) SC SCH (09:10)
--- NOTE | 2017-04-29 10:47 | IPNPDOC ---
Subjective Date Seen The patient was seen on 04/29/17. Subjective Chief Complaint/HPI The patient is a 81-year-old male admitted with a reason for visit of Frequent Falls Neurological Muscle Weakness. General: Reports: ROS Unobtainable (pt is awake and alert and watching televsion, most of ROS is incomprehensible due to receptive aphasia) Objective Physical Examination General Exam: Positive: No Acute Distress, Negative: Alert (pt is alert, sitting in bed watching television, had just finished his breakfast) Eye Exam: Positive: PERRLA, Conjunctiva & lids normal, EOMI, Negative: Sclera icteric ENT Exam: Positive: Atraumatic Neck Exam: Positive: Supple Chest Exam: Positive: Clear to auscultation, Normal air movement, Negative: Rales, Rhonchi, Wheezing, Diminished Heart Exam: Positive: Rate Normal, Normal S1, Normal S2, Negative: Murmurs, Rubs Abdomen Exam: Positive: Normal bowel sounds, Soft, Tenderness (does admit to some generalize pain with palpitation of abdomen, face grimamce with palpitation and states "yes" when asked if painful to touch in abdomnen-this is new for the pt on physical exam), Negative: Hepatospenomegaly, Mass Extremity Exam: Negative: Clubbing, Cyanosis, Edema Skin Exam: Negative: Rash Neuro Exam: Negative: Normal Speech (receptive aphasia) Psych Exam: Negative: Memory Intact (baseline dementia), Oriented x 3 Assessment /Plan Problems (1) Neurological muscle weakness Status: Acute Response to Treatment: Stable Problem Text: pt today on exam was alert and sitting upright bed watching television, did not seem in distress will c/w Neuro check q4h his answers to ROS were unobtainable today secondary to above Still unsure if he is able to accurately understand what is being asked of him Neurology has been consulted-greatly appreciate their recommendations will c/w gabapentin 200 mg BID due to sedation of pt. 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 The pt. has demonstrated impulsive movements while on this stay and it was deemed by PT that a Thalia lift is felt even to be too dangerous based upon this Note PAST EEG showed encephalopathy likely 2/2 patients baseline dementia. Thoracic spine CT showed: The vertebral bodies are in satisfactory positioning and alignment. No fractures or dislocations are demonstrated. Intervertebral disc spaces are well- maintained. There is no evidence of facet subluxation. The neural foramen appear grossly patent. The spinal canal demonstrates normal caliber and contour without evidence of spinal stenosis. The surrounding soft tissues are within normal limits. Impression: No acute abnormalities appreciated. Lumbar spine CT showed: 1. No acute fracture or traumatic injury. 2. Large disc osteophyte complex and disc bulge at L5/S1, causing mild central canal stenosis and bilateral neural foraminal narrowing. 3. Broad disc bulge at L4/L5, without evidence of central canal stenosis. Neck CT showed initially: Impression: Unremarkable CT examination of the soft tissues of the neck. Mild facet arthropathy in the cervical spine. Again awaiting addendum for bony read out. HEAD CT showed: Impression: Age related atrophy and microvascular ischemic changes. No acute intracranial hemorrhage, infarction, or mass/mass effect. (2) Hyperthyroidism Problem Text: TSH low and FT4 up; thyroid u/s was normal awaiting TSI antibodies radioactive uptake scan showed low uptake, at this point since pt is asx. would recommend f/u of TSH labs in 6 weeks after d/c HR controlled-as pt is asx. will continue to monitor (3) CKD (chronic kidney disease), stage III Status: Chronic Response to Treatment: Stable Problem Text: GFR currently 55.4 and is stable would continue to avoid NSAIDS and nephrotoxic drugs and IV contrast and dose adjust medications for renal insufficiency creatine currently 1.32 600 mL out in past 24 hrs (4) Urinary retention Status: Acute Response to Treatment: Stable Problem Text: Pt. has sales with output of600 mL in 24 hour period (5) Hypertension Status: Chronic Response to Treatment: Stable Problem Text: 139/74 stable will c/w home atenolol (6) Hyperlipidemia Status: Chronic Response to Treatment: Stable Problem Text: c/w pravastatin (7) AAA (abdominal aortic aneurysm) Status: Chronic Response to Treatment: Stable Problem Text: 34 x 37 mm as of January 2016-no further workup at family request (8) Delirium Status: Acute Response to Treatment: Stable Problem Text: the pt. did well again overnight, no incidents reported by nursing staff Will continue .25 mg of Risperidone at night, could add on one time dose of additional .25 risperidone if he becomes agitated at night On this admission he has been getting out of bed and attempting to pull out his IV lines Continue with sitter (9) Pacemaker Status: Chronic Response to Treatment: Stable Problem Text: unable to order MRI (10) Abdominal discomfort Status: Acute Response to Treatment: Stable Problem Text: on physical exam, pt. did demonstrate some generalized abdominal discomfort, nabsx4, no rebound ridgity or guarding, no distension. 600mL urine out in past 24 hours. will obtain KUB abdominal flat plate, awaiting results (11) DVT prophylaxis Status: Acute Response to Treatment: Stable Problem Text: c/w lovenox Plan/VTE VTE Prophylaxis Ordered?: Yes Plan/Urinary Catheter Reason for insertion/continuin: Acute obstruct/retention VS, I&O, 24H, Fishbone Vital Signs/I&O Vital Signs Date Time Temp Pulse Resp B/P (MAP) Pulse Ox O2 Delivery O2 Flow Rate FiO2 04/29/17 06:00 96.7 63 15 139/75 (96) 99 Room Air I&O- Last 24 Hours up to 6 AM 04/30/17 06:00 Intake Total 120 ml Output Total 0 ml Balance 120 ml Laboratory Data 24H LABS Laboratory Tests 2 04/29/17 05:46: Anion Gap 7L, Glomerular Filtration Rate 55.4, Blood Urea Nitrogen 21H, Creatinine 1.32H, Sodium Level 142, Potassium Level 3.9, Chloride Level 107, Carbon Dioxide Level 28, Calcium Level 8.5L, Magnesium Level 2.1 CBC/BMP Laboratory Tests 04/29/17 05:46 Red Blood Count 3.63 L, Mean Corpuscular Volume 90.8, Mean Corpuscular Hemoglobin 31.7, Mean Corpuscular Hemoglobin Concent 34.9, Red Cell Distribution Width 11.7, Calcium Level 8.5 L Microbiology Microbiology 04/23/17 Urine Culture - Final, Complete GME ATTESTATION GME ATTESTATION My preceptor for this patient encounter was physically present in the building during the encounter and was fully available. As needed, all aspects of the patient interview, examination, medical decision making process, and medical care plan development were reviewed and approved by the preceptor. Preceptor is aware and concurs with the plan as stated in the body of this note and will attest to such by his/her cosignature. KYLE RUBIN DO Apr 29, 2017 10:46
[2017-04-29 14:00] VITALS: BP 108/68
--- NOTE | 2017-04-29 14:23 | REP ---
KUB ABDOMEN AND PELVIS: AP views of the abdomen and pelvis are performed. No dilated small bowel loops are seen with no evidence of bowel obstruction. Metallic clips are seen in the right upper quadrant. There are diffuse degenerative changes of the spine. IMPRESSION: Unremarkable study. Signed by Syed Levy MD 04/29/2017 07:42 P
[2017-04-29] MEDS: risperiDONE 0.25 MG TAB PO SCH (20:08)
[2017-04-29] MEDS: PRAVASTATIN 20 MG TAB PO SCH (20:09)
[2017-04-29] MEDS: DONEPEZIL 5 MG TAB PO SCH (20:09)
[2017-04-29] MEDS: ACETAMINOPHEN 325 MG TAB PO PRN (20:09)
[2017-04-29 22:00] VITALS: BP 153/70
[2017-04-30 06:00] VITALS: BP 130/75
[2017-04-30 06:29] LABS: CALCIUM LEVEL 8.8 MG/DL (8.8-10.2); CREATININE FOR GFR 1.25 MG/DL (0.70-1.30); POTASSIUM SERUM 3.9 MEQ/L (3.5-5.1)
[2017-04-30 06:37] LABS: MEAN CORPUSCULAR HEMOGLOBIN 32.6 pg (27.0-33.0); MEAN CORPUSCULAR HGB CONC 35.8 g/dl (32.0-36.5); RED CELL DISTRIBUTION WIDTH 11.8 % (11.5-14.5); WHITE BLOOD COUNT 5.4 K/mm3 (4.0-10.0)
[2017-04-30] MEDS: GABAPENTIN 100 MG CAP PO SCH ×2 (08:18→21:00)
[2017-04-30] MEDS: FINASTERIDE 5 MG TAB PO SCH (08:18)
[2017-04-30] MEDS: ASPIRIN 81 MG ENTERIC TAB PO SCH (08:18)
[2017-04-30] MEDS: ENOXAPARIN 30 MG/0.3 ML SYR (J1650) SC SCH (08:18)
[2017-04-30] MEDS: levETIRAcetam 250MG TABLET (KEPPRA) PO SCH ×2 (08:18→20:29)
--- NOTE | 2017-04-30 10:05 | IPNPDOC ---
Subjective Date Seen The patient was seen on 04/30/17. Subjective Chief Complaint/HPI Patient seen and examined at the bedside. Denies any acute complaints at this time. As per the staff, the patient has been eating all of his meals and there have been no acute events reported. Objective Physical Examination General Exam: Positive: Cooperative, No Acute Distress Eye Exam: Negative: Sclera icteric ENT Exam: Positive: Atraumatic, Mucous membr. moist/pink Chest Exam: Positive: Clear to auscultation, Normal air movement, Negative: Rales, Rhonchi, Wheezing, Diminished Heart Exam: Positive: Rate Normal, Normal S1, Normal S2, Negative: Murmurs, Rubs Abdomen Exam: Positive: Soft, Negative: Tenderness Extremity Exam: Negative: Tenderness, Swelling Assessment /Plan Problems (1) Dementia Status: Chronic Response to Treatment: Stable Problem Text: The patient will need placement, will f/u with CM/PFS recommendations (2) Hyperthyroidism Problem Text: TSH low and FT4 up; thyroid u/s was normal Awaiting TSI antibodies Radioactive uptake scan showed low uptake The patient does not display any clinical symptoms of hyperthyroidism HR controlled-no need for BB at this time. will continue to monitor Would recommend f/u of TSH labs in 6-8 weeks (3) CKD (chronic kidney disease), stage III Status: Chronic Response to Treatment: Stable (4) Urinary retention Status: Chronic Response to Treatment: Stable (5) Hypertension Status: Chronic Response to Treatment: Stable (6) Hyperlipidemia Status: Chronic Response to Treatment: Stable Problem Text: c/w pravastatin (7) AAA (abdominal aortic aneurysm) Status: Chronic Response to Treatment: Stable Problem Text: 34 x 37 mm as of January 2016-no further workup at family request (8) Delirium Status: Resolved Response to Treatment: Stable (9) DVT prophylaxis Status: Acute Response to Treatment: Stable Problem Text: c/w lovenox Plan/VTE VTE Prophylaxis Ordered?: Yes Plan/Urinary Catheter Reason for insertion/continuin: Acute obstruct/retention Disposition We will transition the patient to ALC status, and follow up with CM/PFS regarding placement. VS, I&O, 24H, Fishbone Vital Signs/I&O Vital Signs Date Time Temp Pulse Resp B/P (MAP) Pulse Ox O2 Delivery O2 Flow Rate FiO2 04/30/17 06:00 97.1 70 14 130/75 (93) 96 Room Air I&O- Last 24 Hours up to 6 AM 05/01/17 05:59 Intake Total 360 ml Output Total 325 ml Balance 35 ml Laboratory Data 24H LABS Laboratory Tests 2 04/30/17 05:37: Anion Gap 9, Glomerular Filtration Rate 59.0, Blood Urea Nitrogen 19H, Creatinine 1.25, Sodium Level 143, Potassium Level 3.9, Chloride Level 107, Carbon Dioxide Level 27, Calcium Level 8.8, Magnesium Level 2.0 CBC/BMP Laboratory Tests 04/30/17 05:37 Red Blood Count 3.61 L, Mean Corpuscular Volume 91.0, Mean Corpuscular Hemoglobin 32.6, Mean Corpuscular Hemoglobin Concent 35.8, Red Cell Distribution Width 11.8, Calcium Level 8.8 Microbiology Microbiology 04/23/17 Urine Culture - Final, Complete LUCY JEFFERS MD Apr 30, 2017 10:05
[2017-04-30] MEDS: DONEPEZIL 5 MG TAB PO SCH (20:28)
[2017-04-30] MEDS: PRAVASTATIN 20 MG TAB PO SCH (20:28)
[2017-04-30] MEDS: ACETAMINOPHEN 325 MG TAB PO PRN (20:28)
[2017-04-30] MEDS: risperiDONE 0.25 MG TAB PO SCH (20:29)
[2017-05-01 06:00] VITALS: BP 128/72
[2017-05-01] MEDS: GABAPENTIN 100 MG CAP PO SCH ×2 (08:27→21:41)
[2017-05-01] MEDS: FINASTERIDE 5 MG TAB PO SCH (08:27)
[2017-05-01] MEDS: CYANOCOBALAMIN 1,000 MCG/ML VIAL (J3420) IM SCH (08:28)
[2017-05-01] MEDS: ASPIRIN 81 MG ENTERIC TAB PO SCH (08:28)
[2017-05-01] MEDS: ENOXAPARIN 30 MG/0.3 ML SYR (J1650) SC SCH (08:29)
[2017-05-01] MEDS: levETIRAcetam 250MG TABLET (KEPPRA) PO SCH ×2 (08:29→21:41)
[2017-05-01] MEDS: PRAVASTATIN 20 MG TAB PO SCH (21:41)
[2017-05-01] MEDS: risperiDONE 0.25 MG TAB PO SCH (21:41)
[2017-05-01] MEDS: DONEPEZIL 5 MG TAB PO SCH (21:42)
[2017-05-02 06:00] VITALS: BP 122/70
[2017-05-02] MEDS: GABAPENTIN 100 MG CAP PO SCH ×2 (08:16→21:27)
[2017-05-02] MEDS: ASPIRIN 81 MG ENTERIC TAB PO SCH (08:16)
[2017-05-02] MEDS: FINASTERIDE 5 MG TAB PO SCH (08:16)
[2017-05-02] MEDS: ENOXAPARIN 30 MG/0.3 ML SYR (J1650) SC SCH (08:16)
[2017-05-02] MEDS: levETIRAcetam 250MG TABLET (KEPPRA) PO SCH ×2 (08:16→21:27)
[2017-05-02] MEDS: risperiDONE 0.25 MG TAB PO SCH (21:00)
[2017-05-02] MEDS: PRAVASTATIN 20 MG TAB PO SCH (21:27)
[2017-05-02] MEDS: DONEPEZIL 5 MG TAB PO SCH (21:27)
[2017-05-03 06:00] VITALS: BP 121/78
[2017-05-03] MEDS: FINASTERIDE 5 MG TAB PO SCH (10:21)
[2017-05-03] MEDS: levETIRAcetam 250MG TABLET (KEPPRA) PO SCH ×2 (10:21→21:11)
[2017-05-03] MEDS: ASPIRIN 81 MG ENTERIC TAB PO SCH (10:21)
[2017-05-03] MEDS: GABAPENTIN 100 MG CAP PO SCH ×2 (10:21→21:11)
[2017-05-03] MEDS: ENOXAPARIN 30 MG/0.3 ML SYR (J1650) SC SCH (10:22)
[2017-05-03] MEDS: DONEPEZIL 5 MG TAB PO SCH (21:11)
[2017-05-03] MEDS: risperiDONE 0.25 MG TAB PO SCH (21:11)
[2017-05-03] MEDS: PRAVASTATIN 20 MG TAB PO SCH (21:11)
[2017-05-04 06:00] VITALS: BP 133/74
[2017-05-04] MEDS: ENOXAPARIN 30 MG/0.3 ML SYR (J1650) SC SCH (09:30)
[2017-05-04] MEDS: levETIRAcetam 250MG TABLET (KEPPRA) PO SCH ×2 (09:30→20:10)
[2017-05-04] MEDS: FINASTERIDE 5 MG TAB PO SCH (09:30)
[2017-05-04] MEDS: ASPIRIN 81 MG ENTERIC TAB PO SCH (09:30)
[2017-05-04] MEDS: GABAPENTIN 100 MG CAP PO SCH ×2 (09:30→20:09)
[2017-05-04] MEDS: DONEPEZIL 5 MG TAB PO SCH (20:10)
[2017-05-04] MEDS: risperiDONE 0.25 MG TAB PO SCH (20:10)
[2017-05-04] MEDS: PRAVASTATIN 20 MG TAB PO SCH (20:10)
[2017-05-05 06:00] VITALS: BP 129/78
[2017-05-05] MEDS: FINASTERIDE 5 MG TAB PO SCH (10:35)
[2017-05-05] MEDS: ENOXAPARIN 30 MG/0.3 ML SYR (J1650) SC SCH (10:35)
[2017-05-05] MEDS: GABAPENTIN 100 MG CAP PO SCH ×2 (10:35→20:11)
[2017-05-05] MEDS: levETIRAcetam 250MG TABLET (KEPPRA) PO SCH ×2 (10:35→20:11)
[2017-05-05] MEDS: ASPIRIN 81 MG ENTERIC TAB PO SCH (10:35)
[2017-05-05] MEDS: DONEPEZIL 5 MG TAB PO SCH (20:11)
[2017-05-05] MEDS: risperiDONE 0.25 MG TAB PO SCH (20:11)
[2017-05-05] MEDS: PRAVASTATIN 20 MG TAB PO SCH (20:11)
[2017-05-05] MEDS: ACETAMINOPHEN 325 MG TAB PO PRN (22:47)
[2017-05-06 06:00] VITALS: BP 131/69
[2017-05-06 06:15] LABS: MEAN CORPUSCULAR HEMOGLOBIN 30.9 pg (27.0-33.0); MEAN CORPUSCULAR HGB CONC 33.9 g/dl (32.0-36.5); MEAN CORPUSCULAR VOLUME 91.1 fl (80.0-96.0); RED CELL DISTRIBUTION WIDTH 11.7 % (11.5-14.5); WHITE BLOOD COUNT 7.3 10^3/uL (4.0-10.0)
[2017-05-06 06:47] LABS: CALCIUM LEVEL 9.1 MG/DL (8.8-10.2); CREATININE FOR GFR 1.38 MG/DL (0.70-1.30); GLOMERULAR FILTRATION RATE 52.6 (>35)
[2017-05-06] MEDS: ASPIRIN 81 MG ENTERIC TAB PO SCH (08:23)
[2017-05-06] MEDS: levETIRAcetam 250MG TABLET (KEPPRA) PO SCH ×2 (08:23→21:37)
[2017-05-06] MEDS: GABAPENTIN 100 MG CAP PO SCH ×2 (08:23→21:37)
[2017-05-06] MEDS: SENOKOT S TAB PO SCH (08:23)
[2017-05-06] MEDS: FINASTERIDE 5 MG TAB PO SCH (08:24)
[2017-05-06] MEDS: ENOXAPARIN 30 MG/0.3 ML SYR (J1650) SC SCH (08:24)
--- NOTE | 2017-05-06 12:38 | IPNPDOC ---
Subjective Date Seen The patient was seen on 05/06/17. Subjective Chief Complaint/HPI The patient is a 81-year-old male admitted with a reason for visit of Frequent [place] Neurological Muscle Weakness. General: Reports: ROS Unobtainable (pt can answer some questions with "yes" "no " however most of his responses to ROS exam questioning were incomprehensible due to pts receptive aphasia) Pulmonary: Denies: Dyspnea Cardiovascular: Denies: Chest Pain Genitourinary: Denies: Dysuria Objective Physical Examination General Exam: Positive: Alert, Cooperative, No Acute Distress Eye Exam: Positive: Conjunctiva & lids normal, EOMI, Negative: Sclera icteric, Ptosis ENT Exam: Positive: Atraumatic, Mucous membr. moist/pink, Tongue Midline, Nares Patent Chest Exam: Positive: Clear to auscultation, Normal air movement, Diminished, Negative: Rales, Rhonchi, Wheezing Heart Exam: Positive: Rate Normal, Normal S1, Normal S2, Negative: Murmurs, Rubs Abdomen Exam: Positive: Normal bowel sounds, Soft, Negative: Tenderness, Mass Extremity Exam: Negative: Clubbing, Cyanosis, Edema, Tenderness, Swelling Assessment /Plan Problems (1) Dementia Status: Chronic Response to Treatment: Stable Problem Text: Alert today but due to receptive aphasia, can only answer to some questions with "yes" "no", as he attempts to speak he is incomprehensible, this is baseline The patient will need placement, will f/u with CM/PFS recommendations (2) Hyperthyroidism Problem Text: TSH low and FT4 up; thyroid u/s was normal TSI antibody normal Radioactive uptake scan showed low uptake The patient does not display any clinical symptoms of hyperthyroidism HR controlled-no need for BB at this time. will continue to monitor Would recommend f/u of TSH labs in 6-8 weeks outpt. (3) CKD (chronic kidney disease), stage III Status: Chronic Response to Treatment: Stable Problem Text: creatine 1.38 UA and urine cx pending (4) Urinary retention Status: Chronic Response to Treatment: Stable Problem Text: he is straight cath q8h, 300-400 mL out, spoke to urologist community relations officer, recommended straight cath. q6-8h, and if nursing facility is unable to accomplish this than a chronic sales cath may be necessary although it increases the risk for infection and traumatic hypospadias. Pt has skin reaction to Flomax and thus cannot be given this medication. He will likely need urology outpt f/u for further evaluation. Please refer to urology note for further details. hx of chronic urinary retention. pt did have sales cath removed a few days prior. (5) Hypertension Status: Chronic Response to Treatment: Stable Problem Text: stable 131/69 (6) Hyperlipidemia Status: Chronic Response to Treatment: Stable Problem Text: c/w pravastatin (7) AAA (abdominal aortic aneurysm) Status: Chronic Response to Treatment: Stable Problem Text: 34 x 37 mm as of January 2016-no further workup at family request (8) Delirium Status: Resolved Response to Treatment: Stable Problem Text: pt seems to be at baseline (9) DVT prophylaxis Status: Acute Response to Treatment: Stable Problem Text: c/w lovenox Plan/VTE VTE Prophylaxis Ordered?: Yes Plan/Urinary Catheter Reason for insertion/continuin: Acute obstruct/retention VS, I&O, 24H, Fishbone Vital Signs/I&O Vital Signs Date Time Temp Pulse Resp B/P (MAP) Pulse Ox O2 Delivery O2 Flow Rate FiO2 05/06/17 09:00 Room Air 05/06/17 06:00 96.9 64 17 131/69 (89) 96 I&O- Last 24 Hours up to 6 AM 05/07/17 06:00 Intake Total 10 ml Output Total 280 ml Balance -270 ml Laboratory Data 24H LABS Laboratory Tests 2 05/06/17 05:58: Anion Gap 6L, Glomerular Filtration Rate 52.6, Blood Urea Nitrogen 32H, Creatinine 1.38H, Sodium Level 139, Potassium Level 4.0, Chloride Level 104, Carbon Dioxide Level 29, Calcium Level 9.1 05/06/17 10:54: Urine Appearance HAZY, Urine Color YELLOW, Urine pH 5.0, Urine Specific [place] 1.019, Urine Protein NEGATIVE, Urine Glucose (UA) NEGATIVE, Urine Ketones NEGATIVE, Urine Urobilinogen 0.2, Urine Bilirubin NEGATIVE, Urine Leukocyte Esterase 2+H, Urine Blood 1+H, Urine Nitrite NEGATIVE, Urine WBC (Auto) 21H, Urine RBC (Auto) 3, Urine Hyaline Casts (Auto) 0, Urine Bacteria (Auto) NEGATIVE , Urine Squamous Epithelial Cells 0, Urine Amorphous Sediment MODERATEH, Urine Sperm (Auto) CBC/BMP Laboratory Tests 05/06/17 05:58 Red Blood Count 3.82 L, Mean Corpuscular Volume 91.1, Mean Corpuscular Hemoglobin 30.9, Mean Corpuscular Hemoglobin Concent 33.9, Red Cell Distribution Width 11.7, Calcium Level 9.1 Microbiology Microbiology 05/06/17 Urine Culture, Received Pending GME ATTESTATION GME ATTESTATION My preceptor for this patient encounter was physically present in the building during the encounter and was fully available. As needed, all aspects of the patient interview, examination, medical decision making process, and medical care plan development were reviewed and approved by the preceptor. Preceptor is aware and concurs with the plan as stated in the body of this note and will attest to such by his/her cosignature. KYLE RUBIN DO May 06, 2017 12:38
--- NOTE | 2017-05-06 14:31 | SMCUROLCON ---
Urology Consultation General Date of Consultation 05/06/17 Reason For Consultation This patient is seen for Frequent Falls Neurological Muscle Weakness. History of Present Illness The patient is a 81-year-old male currently admitted to [facility] for change in gait. He is undergoing neurologic evaluation and medical optimization with plan to transfer him to a rehab or prison. Prior to this admission he was at home. He has a h/o prostate ca s/p EBRT several years ago and is on Lupron with Dr. Lopez. He also has BPH/bladder outlet obstruction and has seen Dr. Hernandez (Urologist) several times as an outpatient. He was previously on flomax but it caused a skin reaction and so was discontinued. He was then placed on finasteride that he was on until this admission. Prior to this admission his reports he was voiding spontaneously and that he had only ever had a urinary catheter during a previous hospitalization, never needing catheterization at home. During this admission he had an indwelling sales until couple days ago when it was removed. After sales removal he did not voiding for more than 8 hours and bladder scan demonstrated about 250 mL in bladder and q8 intermittent catheterization was started which has been yielding 200-300 mL. Primary team has consulted urology asking for recommendation for urinary management upon discharge in the prison. Past Medical History Medical History Pacemaker, aortic aneurysm, hyperlipidemia, benign prostatic hypertrophy, history of prostate cancer, peripheral neuropathy. Surgical Hstory Cholecystectomy for ruptured gallbladder in 1989, pacemaker placement in January 2016, colonoscopy 2006, prostate cancer treated with external radiation therapy and Lupron injections. Family History Significant Family History: No pertinent family hx Social History * Smoker: non-smoker Alcohol: Denies Drugs: denies Medications Current Medications Current Medications Acetaminophen (Tylenol Tab) 650 mg Q4H PRN PO PAIN Last administered on 22:47; Start 04/23/17 at 13:45; Stop 05/23/17 at 13:44 Aspirin (Ecotrin) 81 mg QAM PO Last administered on 05/06/17 08:23; Start at 09:00; Stop 05/23/17 at 08:59 Atenolol (Tenormin) 25 mg DAILY PO ; Start 04/23/17 at 09:00; Stop 04/23/17 at 16:01; Status DC Cyanocobalamin (Vitamin B12 Injection) 1,000 mcg DAILY IM Last administered on 04/24/17 12:31; Start 04/24/17 at 09:00; Stop 04/24/17 at 15:09; Status DC Cyanocobalamin (Vitamin B12 Injection) 1,000 mcg Q7D IM Last administered on 08:28; Start 05/01/17 at 09:00; Stop 05/15/17 at 10:00 Donepezil HCl (AriCEPT) 10 mg QHS PO Last administered on 05/05/17 20:11; Start 04/23/17 at 21:00; Stop 05/23/17 at 20:59 Enoxaparin Sodium (Lovenox) 30 mg DAILY SC Last administered on 04/27/17 08:45 ; Start 04/23/17 at 09:00; Stop 04/28/17 at 08:59; Status DC Enoxaparin Sodium (Lovenox) 30 mg DAILY SC Last administered on 05/06/17 08:24 ; Start 04/28/17 at 09:00; Stop 05/07/17 at 08:59 Finasteride (Proscar) 5 mg DAILY PO Last administered on 05/06/17 08:24; Start 04/23/17 at 09:00; Stop 05/23/17 at 08:59 Gabapentin (Neurontin) 200 mg BID PO Last administered on 05/06/17 08:23; Start 04/24/17 at 21:00; Stop 05/24/17 at 20:59 Gabapentin (Neurontin) 400 mg BID PO Last administered on 04/24/17 09:15; Start 04/23/17 at 21:00; Stop 04/24/17 at 11:28; Status DC Gabapentin (Neurontin) 400 mg TID PO ; Start 04/23/17 at 16:00; Stop 04/23/17 at 16:00; Status DC Home Med (Med Rec Complete!) ASDIRECTED XX ; Start 04/23/17 at 13:30; Stop at 13:30; Status DC Levetiracetam (Keppra) 250 mg BID PO Last administered on 05/06/17 08:23; Start 04/24/17 at 09:00; Stop 05/24/17 at 08:59 Levothyroxine Sodium (Synthroid) 12.5 mcg DAILY@06 PO Last administered on 04/24 12:30; Start 04/24/17 at 06:00; Stop 04/24/17 at 13:39; Status DC Miscellaneous (Unresolved Clarification Entry) SEE LABEL COMMENTS UNRESOLVED XX ; Start 04/28/17 at 00:01; Stop 04/28/17 at 17:03; Status DC Pravastatin Sodium (Pravachol) 80 mg QHS PO Last administered on 05/05/17 20: 11; Start 04/23/17 at 21:00; Stop 05/23/17 at 20:59 Risperidone (RisperDAL) 0.25 mg QHS PO Last administered on 05/05/17 20:11; Start 04/26/17 at 21:00; Stop 05/26/17 at 20:59 Risperidone (RisperDAL) 0.25 mg QHSP PO ; Start 04/26/17 at 12:00; Stop at 11:59; Status UNV Senna/Docusate Sodium (Senokot S) 1 tab DAILY PO Last administered on 08:23; Start 05/06/17 at 09:00; Stop 06/05/17 at 08:59 Sodium Chloride 1,000 ml @ 100 mls/hr Q10H IV Last administered on 04/23/17 12:00; Start 04/23/17 at 09:51; Stop 04/23/17 at 13:36; Status DC Allergies Allergies: Coded Allergies: Latex (Verified Allergy, Intermediate, HIVES/SWELLING, 01/31/13) Sulfa Drugs (Verified Allergy, Intermediate, HIVES, 01/31/13) Sulfa Drugs Cross Reactors (Verified Allergy, Intermediate, HIVES, 01/31/13 ) Tamsulosin (Verified Allergy, Unknown, 01/27/16) Codeine (Verified Adverse Reaction, Intermediate, UNABLE TO FUNCTION, 01/31) Review of Systems General: Reports: Normal Appetite, Denies: Fatigue, Malaise Constitutional: Denies: Fever, Chills, Sweats, Weakness, Malaise Eyes: Denies: Pain, Vision change ENT: Denies: Head Aches, Sore Throat, Epistaxis Skin: Denies: Rash, Lesions, Breakdown, Nail Changes Pulmonary: Denies: Dyspnea, Cough Cardiovascular: Denies Chest Pain, Denies Palpitations Gastrointestinal: Denies: Nausea, Vomiting, Abdominal Pain Genitourinary: Denies: Dysuria, Frequency, Incontinence, Hematuria Hematologic: Denies: Bruising, Bleeding Excessively Endocrine: Denies: Polydipsia, Polyphagia, Polyuria Musculoskeletal: Denies: Neck Pain, Back Pain Neurological: Denies: Weakness, Numbness, Incoordination, Change in Speech Psych: Reports: Mood Normal, Denies: Anxiety, Depression Physical Examination General Exam: No Acute Distress EYE EXAM: PERRLA, Conjunctiva & lids normal, EOMI, No: Sclera icteric ENT EXAM: Atraumatic, Mucous membr. moist/pink, Pharynx Normal Neck Exam: Supple, No: JVD, thyromegaly Chest Exam: Clear to auscultation, Normal air movement Heart Exam: Rate Normal, Regular Rhythm, Normal S1, Normal S2, No: Murmurs, Rubs Abdomen Exam: Normal Bowel Sounds, Soft, No: Tenderness, Hepatospenomegaly Male Exam: Normal Genital Exam Female Exam: Nl Ext Genitalia, No: Lesions, Discharge, Odor, Tenderness Extremity Exam: Normal Pulses, No: Clubbing, Cyanosis, Edema Skin Exam: Nl turgor and temperature, No: Rash, Breakdown Neuro Exam: Normal Gait, Normal Speech, Cranial Nerves 3-12 NL, Reflexes 2+ Psych Exam: Mental status NL, Mood NL, Oriented x 3 Vital Signs/I&O Vital Signs Date Time Temp Pulse Resp B/P (MAP) Pulse Ox O2 Delivery O2 Flow Rate FiO2 05/06/17 09:00 Room Air 05/06/17 06:00 96.9 64 17 131/69 (89) 96 I&O- Last 24 Hours up to 6 AM 05/07/17 06:00 Intake Total 10 ml Output Total 280 ml Balance -270 ml Laboratory Data 24H Labs Laboratory Tests 2 05/06/17 05:58: Anion Gap 6L, Glomerular Filtration Rate 52.6, Blood Urea Nitrogen 32H, Creatinine 1.38H, Sodium Level 139, Potassium Level 4.0, Chloride Level 104, Carbon Dioxide Level 29, Calcium Level 9.1 05/06/17 10:54: Urine Appearance HAZY, Urine Color YELLOW, Urine pH 5.0, Urine Specific [place] 1.019, Urine Protein NEGATIVE, Urine Glucose (UA) NEGATIVE, Urine Ketones NEGATIVE, Urine Urobilinogen 0.2, Urine Bilirubin NEGATIVE, Urine Leukocyte Esterase 2+H, Urine Blood 1+H, Urine Nitrite NEGATIVE, Urine WBC (Auto) 21H, Urine RBC (Auto) 3, Urine Hyaline Casts (Auto) 0, Urine Bacteria (Auto) NEGATIVE , Urine Squamous Epithelial Cells 0, Urine Amorphous Sediment MODERATEH, Urine Sperm (Auto) CBC/BMP Laboratory Tests 05/06/17 05:58 Red Blood Count 3.82 L, Mean Corpuscular Volume 91.1, Mean Corpuscular Hemoglobin 30.9, Mean Corpuscular Hemoglobin Concent 33.9, Red Cell Distribution Width 11.7, Calcium Level 9.1 Microbiology Microbiology 05/06/17 Urine Culture, Received Pending Assessment h/o Prostate cancer and BPH now with possible urinary retention secondary bladder outlet obstruction Plan 1. Recommend longer trial of void prior to catheterization. It sounds like the bladder scan only demonstrated 200-300 mL urine in the bladder after 8 hours ( which is consistent with the yields of intermittent catheterizations). It is likely Mr. Cohen has a bladder capacity higher than 200-300 mL. So, although 8 hours had passed, he may not have voided simply because he had not reached his capacity, rather than because of urinary retention from obstruction. Recommend waiting until bladder scan demonstrates at ;east 500 mL or until patient begins demonstrating typical symptoms of acute urinary retention (suprapubic pain and reporting feeling of needing to void but not being able to do so). If his bladder scan does show > 500 mL and/or patient demonstrates symptoms of AUR then recommend resume q 8 hr IC. If not then wait longer to see if he will void spontaneously. 2. If patient does require catheterization, the best option is q8 hr intermittent catheterization as it is associated with lower rates of UTI than indwelling catheterization. If this is not possible at the facility he is going to then indwelling catheterization may be the only option. In either case he should f/u with Dr. Hernandez as an outpatient for ongoing care as he may be able to void without catheterization in the future. 3. Resume home proscar 5 mg daily. 4. Consider trial of a non-flomax alpha-michael medication such as alfuzosin as the h/o skin reaction may not occur with an alternative alpha-michael and combination alpha-michael and 5-TANA is more effective BPH treatment than either alone. VENITA FIELDS MD May 06, 2017 14:08
[2017-05-06] MEDS: risperiDONE 0.25 MG TAB PO SCH (21:37)
[2017-05-06] MEDS: PRAVASTATIN 20 MG TAB PO SCH (21:37)
[2017-05-06] MEDS: DONEPEZIL 5 MG TAB PO SCH (21:37)
[2017-05-07 06:00] VITALS: BP 108/71
[2017-05-07] MEDS: ACETAMINOPHEN 325 MG TAB PO PRN (09:25)
[2017-05-07] MEDS: SENOKOT S TAB PO SCH (09:26)
[2017-05-07] MEDS: FINASTERIDE 5 MG TAB PO SCH (09:26)
[2017-05-07] MEDS: ASPIRIN 81 MG ENTERIC TAB PO SCH (09:26)
[2017-05-07] MEDS: levETIRAcetam 250MG TABLET (KEPPRA) PO SCH ×2 (09:26→20:15)
[2017-05-07] MEDS: GABAPENTIN 100 MG CAP PO SCH ×2 (09:26→20:14)
[2017-05-07] MEDS: ENOXAPARIN 30 MG/0.3 ML SYR (J1650) SC SCH (10:23)
[2017-05-07] MEDS: risperiDONE 0.25 MG TAB PO SCH (20:15)
[2017-05-07] MEDS: DONEPEZIL 5 MG TAB PO SCH (20:15)
[2017-05-07] MEDS: PRAVASTATIN 20 MG TAB PO SCH (20:15)
[2017-05-08 06:00] VITALS: BP 138/63
[2017-05-08] MEDS: SENOKOT S TAB PO SCH (09:12)
[2017-05-08] MEDS: ASPIRIN 81 MG ENTERIC TAB PO SCH (09:12)
[2017-05-08] MEDS: CYANOCOBALAMIN 1,000 MCG/ML VIAL (J3420) IM SCH (09:12)
[2017-05-08] MEDS: ENOXAPARIN 30 MG/0.3 ML SYR (J1650) SC SCH (09:12)
[2017-05-08] MEDS: GABAPENTIN 100 MG CAP PO SCH ×2 (09:12→20:18)
[2017-05-08] MEDS: levETIRAcetam 250MG TABLET (KEPPRA) PO SCH ×2 (09:12→20:18)
[2017-05-08] MEDS: FINASTERIDE 5 MG TAB PO SCH (09:12)
[2017-05-08] MEDS: DONEPEZIL 5 MG TAB PO SCH (20:18)
[2017-05-08] MEDS: risperiDONE 0.25 MG TAB PO SCH (20:18)
[2017-05-08] MEDS: PRAVASTATIN 20 MG TAB PO SCH (20:18)
[2017-05-09 06:00] VITALS: BP 124/74
[2017-05-09] MEDS: SENOKOT S TAB PO SCH (08:27)
[2017-05-09] MEDS: levETIRAcetam 250MG TABLET (KEPPRA) PO SCH ×2 (08:27→20:34)
[2017-05-09] MEDS: ENOXAPARIN 30 MG/0.3 ML SYR (J1650) SC SCH (08:27)
[2017-05-09] MEDS: GABAPENTIN 100 MG CAP PO SCH ×2 (08:27→20:33)
[2017-05-09] MEDS: ASPIRIN 81 MG ENTERIC TAB PO SCH (08:27)
[2017-05-09] MEDS: FINASTERIDE 5 MG TAB PO SCH (08:27)
[2017-05-09] MEDS: PRAVASTATIN 20 MG TAB PO SCH (20:33)
[2017-05-09] MEDS: risperiDONE 0.25 MG TAB PO SCH (20:33)
[2017-05-09] MEDS: DONEPEZIL 5 MG TAB PO SCH (20:34)
[2017-05-10 06:00] VITALS: BP 119/60
[2017-05-10] MEDS: SENOKOT S TAB PO SCH (10:11)
[2017-05-10] MEDS: GABAPENTIN 100 MG CAP PO SCH ×2 (10:11→20:17)
[2017-05-10] MEDS: levETIRAcetam 250MG TABLET (KEPPRA) PO SCH ×2 (10:11→20:17)
[2017-05-10] MEDS: ASPIRIN 81 MG ENTERIC TAB PO SCH (10:11)
[2017-05-10] MEDS: FINASTERIDE 5 MG TAB PO SCH (10:11)
[2017-05-10] MEDS: ENOXAPARIN 30 MG/0.3 ML SYR (J1650) SC SCH (10:12)
[2017-05-10 11:25] LABS: CREATININE FOR GFR 1.3 MG/DL (0.70-1.30); GLOMERULAR FILTRATION RATE 56.4 (>35)
[2017-05-10] MEDS: risperiDONE 0.25 MG TAB PO SCH (20:17)
[2017-05-10] MEDS: PRAVASTATIN 20 MG TAB PO SCH (20:17)
[2017-05-10] MEDS: DONEPEZIL 5 MG TAB PO SCH (20:17)
[2017-05-11 06:00] VITALS: BP 106/73
[2017-05-11 07:55] VITALS: BP 124/66
[2017-05-11] MEDS: ENOXAPARIN 30 MG/0.3 ML SYR (J1650) SC SCH (10:11)
[2017-05-11] MEDS: FINASTERIDE 5 MG TAB PO SCH (10:11)
[2017-05-11] MEDS: levETIRAcetam 250MG TABLET (KEPPRA) PO SCH ×2 (10:11→20:18)
[2017-05-11] MEDS: SENOKOT S TAB PO SCH (10:11)
[2017-05-11] MEDS: ASPIRIN 81 MG ENTERIC TAB PO SCH (10:11)
[2017-05-11] MEDS: GABAPENTIN 100 MG CAP PO SCH ×2 (10:11→20:18)
[2017-05-11] MEDS: DONEPEZIL 5 MG TAB PO SCH (20:18)
[2017-05-11] MEDS: risperiDONE 0.25 MG TAB PO SCH (20:18)
[2017-05-11] MEDS: PRAVASTATIN 20 MG TAB PO SCH (20:18)
[2017-05-12] MEDS: ACETAMINOPHEN 325 MG TAB PO PRN (01:48)
[2017-05-12 05:15] VITALS: BP 108/62
[2017-05-12] MEDS: levETIRAcetam 250MG TABLET (KEPPRA) PO SCH ×2 (09:14→20:22)
[2017-05-12] MEDS: GABAPENTIN 100 MG CAP PO SCH ×2 (09:14→20:21)
[2017-05-12] MEDS: ASPIRIN 81 MG ENTERIC TAB PO SCH (09:14)
[2017-05-12] MEDS: FINASTERIDE 5 MG TAB PO SCH (09:14)
[2017-05-12] MEDS: SENOKOT S TAB PO SCH (09:14)
[2017-05-12] MEDS: ENOXAPARIN 30 MG/0.3 ML SYR (J1650) SC SCH (09:15)
[2017-05-12 15:45] LABS: CREATININE FOR GFR 1.38 MG/DL (0.70-1.30); GLOMERULAR FILTRATION RATE 52.6 (>35); POTASSIUM SERUM 4.2 MEQ/L (3.5-5.1)
[2017-05-12] MEDS: risperiDONE 0.25 MG TAB PO SCH (20:21)
[2017-05-12] MEDS: PRAVASTATIN 20 MG TAB PO SCH (20:22)
[2017-05-12] MEDS: DONEPEZIL 5 MG TAB PO SCH (20:22)
[2017-05-13 05:08] VITALS: BP 125/60
[2017-05-13 06:06] LABS: MEAN CORPUSCULAR HEMOGLOBIN 31.3 pg (27.0-33.0); MEAN CORPUSCULAR VOLUME 92.1 fl (80.0-96.0); RED CELL DISTRIBUTION WIDTH 11.8 % (11.5-14.5)
[2017-05-13 06:36] LABS: ANION GAP 5 MEQ/L (8-16); BLOOD UREA NITROGEN 27 MG/DL (7-18); CALCIUM LEVEL 9.1 MG/DL (8.8-10.2); CARBON DIOXIDE LEVEL 30 MEQ/L (21-32); CHLORIDE LEVEL 105 MEQ/L (98-107); CREATININE FOR GFR 1.18 MG/DL (0.70-1.30); GLOMERULAR FILTRATION RATE > 60.0 (>35); GLUCOSE, FASTING 103 MG/DL (83-110); POTASSIUM SERUM 3.9 MEQ/L (3.5-5.1); SODIUM LEVEL 140 MEQ/L (136-145)
--- NOTE | 2017-05-13 08:25 | IPN ---
DATE: 05/13/2017 Chart has been reviewed. This morning, the patient denies dysuria, urgency or frequency, fever, chills, or flank pain. He has a decrease in oral intake and concerns for minimal urine output. He has been encouraged to drink up to 2 liters of liquids daily at the bedside, a significant dehydration is noted with hypernatremia, sodium level greater than 145 and creatinine greater than 1.5. IV fluids will be given as a trial. We will continue with intermittent catheterization for postvoid residual greater than 500 mL. VITAL SIGNS: Temperature 97.2, pulse 77, respiratory rate 18, blood pressure 125/60, 96% on room air. GENERAL: Awake, alert, oriented. Answering questions appropriately. Awake, alert and oriented to person. No use of respiratory accessory muscles. LUNGS: Clear to auscultation. No wheezes, rales, or rhonchi. HEART: S1, S2. Sinus rhythm. ABDOMEN: Soft, nontender, nondistended. Positive bowel sounds. EXTREMITIES: No cyanosis, clubbing or pitting edema. Laboratory data and microbiology have been reviewed. ASSESSMENT AND PLAN: This is an 81-year-old male with a history of abdominal aortic aneurysm, 34 x 37 mm, on 01/21/2011, pacemaker placed by Dr. Beverly, hyperlipidemia, benign prostatic hypertrophy (BPH), prostate cancer on hormonal therapy, follows with Dr. Hernadnez from urology, follows with Dr. Lopez oncology in the past, cholecystectomy for ruptured gallbladder, presented to the emergency room on 04/23/2017 due to neurologic weakness with recurrent falls. The patient's acute issues are as follows: 1. Decreased oral intake. Encourage at the bedside if possible. Most likely related to his dementia with receptive aphasia and can only answer yes or no to questions. The patient is incomprehensible at baseline. Awaiting placement. 2. Hyperthyroidism. TSH is low and Free T4 is up. Thyroid ultrasound was normal. TSH antibody normal. Radioactive uptake shows a little uptake. No clinical signs and symptoms of hyperthyroidism. Heart rate appears to be controlled. No beta blockade required. Repeat thyroid function tests in 6 to 8 weeks. 3. Chronic kidney disease stage III, currently stable. 4. Urine retention. Straight catheterization for postvoid residual greater than 500, per urology. 5. Hypertension, stable, chronic. 6. Hyperlipidemia, chronic. 7. Abdominal aortic aneurysm, stable. No further workup per family request. 8. Asymptomatic bacteruria. Contamination with Enterococcus urinae. The patient has no complaints of fevers, chills, flank pain, dysuria, urgency, or frequency. No fevers. No white count. No empiric antibiotics for now unless going for urological procedure, in which sepsis would be higher risk. MTDD
[2017-05-13] MEDS: ASPIRIN 81 MG ENTERIC TAB PO SCH (08:57)
[2017-05-13] MEDS: FINASTERIDE 5 MG TAB PO SCH (08:57)
[2017-05-13] MEDS: SENOKOT S TAB PO SCH (08:57)
[2017-05-13] MEDS: levETIRAcetam 250MG TABLET (KEPPRA) PO SCH ×2 (08:57→20:16)
[2017-05-13] MEDS: GABAPENTIN 100 MG CAP PO SCH ×2 (08:57→20:16)
[2017-05-13] MEDS: ENOXAPARIN 30 MG/0.3 ML SYR (J1650) SC SCH (08:58)
[2017-05-13] MEDS ORDERED: NS 500 ML IV ONE (16:00)
[2017-05-13] MEDS: risperiDONE 0.25 MG TAB PO SCH (20:16)
[2017-05-13] MEDS: DONEPEZIL 5 MG TAB PO SCH (20:16)
[2017-05-13] MEDS: PRAVASTATIN 20 MG TAB PO SCH (20:16)
[2017-05-14] MEDS: ACETAMINOPHEN TAB 650MG DOSE (2X325MG) PO PRN ×2 (00:04→20:33)
[2017-05-14 06:00] VITALS: BP 113/65
[2017-05-14] MEDS: GABAPENTIN 100 MG CAP PO SCH ×2 (08:32→20:33)
[2017-05-14] MEDS: FINASTERIDE 5 MG TAB PO SCH (08:32)
[2017-05-14] MEDS: ENOXAPARIN 30 MG/0.3 ML SYR (J1650) SC SCH (08:32)
[2017-05-14] MEDS: ASPIRIN 81 MG ENTERIC TAB PO SCH (08:32)
[2017-05-14] MEDS: SENOKOT S TAB PO SCH (08:32)
[2017-05-14] MEDS: levETIRAcetam 250MG TABLET (KEPPRA) PO SCH ×2 (08:32→20:32)
[2017-05-14] MEDS ORDERED: MOM 30ML SUSPENSION UDC PO PRN (10:15)
[2017-05-14] MEDS: risperiDONE 0.25 MG TAB PO SCH (20:32)
[2017-05-14] MEDS: DONEPEZIL 5 MG TAB PO SCH (20:32)
[2017-05-14] MEDS: PRAVASTATIN 20 MG TAB PO SCH (20:32)
[2017-05-15 06:00] VITALS: BP 134/87
[2017-05-15] MEDS: levETIRAcetam 250MG TABLET (KEPPRA) PO SCH (09:26)
[2017-05-15] MEDS: CYANOCOBALAMIN 1,000 MCG/ML VIAL (J3420) IM SCH (09:26)
[2017-05-15] MEDS: ASPIRIN 81 MG ENTERIC TAB PO SCH (09:27)
[2017-05-15] MEDS: GABAPENTIN 100 MG CAP PO SCH (09:27)
[2017-05-15] MEDS: SENOKOT S TAB PO SCH (09:27)
[2017-05-15] MEDS: ENOXAPARIN 30 MG/0.3 ML SYR (J1650) SC SCH (09:27)
[2017-05-15] MEDS: FINASTERIDE 5 MG TAB PO SCH (09:27)
[2017-05-15] MEDS ORDERED: KEPP250T5 PO (10:28)
[2017-05-15] MEDS ORDERED: RISP0.2516 PO (10:28)
[2017-05-15] MEDS ORDERED: B121000T PO (10:30)
[2017-05-15] MEDS ORDERED: INFLUENZA VIRUS VACCINE HIGH DOSE 0.5 ML SYRINGE (90662) IM ONE (12:00)
--- NOTE | 2017-06-12 21:05 | DSES ---
DATE OF ADMISSION: 04/23/2017 DATE OF DISCHARGE: 05/15/2017 The patient was transitioned to alternate level of care (ALC) status on 05/06/2017 and was discharged to [facility] on 05/15/2017. PRIMARY DISCHARGE DIAGNOSES: 1. Failure to thrive with decreased oral intake. 2. Thyroiditis. 3. Chronic kidney disease stage III. 4. Urinary retention. 5. Hypertension. 6. 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 DISCHARGE MEDICATIONS: - aspirin 81 mg daily - Keppra 250 mg twice a day - Risperdal 0.25 mg at night - vitamin B12 1000 mcg daily - Tylenol 650 mg every 4 hours as needed - Lomotil two tablets by mouth twice a day - donepezil 10 mg at night - finasteride 5 mg daily - pravastatin 80 mg daily HOSPITAL COURSE: This is an 81-year-old male with a prior history of dementia diagnosed about 8 years prior to admission, presented to the emergency room with progressive weakness, lower extremity weakness, urine retention, recurrent falls. The patient's gabapentin was tapered and was discontinued at discharge. Neurologist, Dr. 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 The patient had progressive Wernicke's aphasia, most likely related to his vascular disease. He was also started on B12 1000 mcg intramuscularly, contributing to disease of the central nervous system and peripheral neuropathy. Imaging studies included thoracic and lumbar spine CT, which showed no acute abnormalities. The patient was found to have abnormal thyroid function tests with negative thyroid ultrasound. Radioactive thyroid scan consistent with thyroiditis. The patient had acute kidney injury, which responded to intravenous fluids, due to urinary retention. He had Enterococcus faecalis in the urine, which was resistant to tetracycline. He was seen by urologist, Dr. Vang, who recommended a longer trial of voiding prior to catheterization. The patient was only exhibiting 200 to 300 mL of urine in the bladder after 8 hours with a bladder capacity higher than this. Recommendations were every 8 hourly intermittent catheterization due to lower rates of urinary tract infection (UTI) than an indwelling catheterization. Trial of non Flomax alpha michael, such as alfuzosin. The patient was changed to alternate level of care (ALC) status on 05/06/2017 and was discharged to [facility] on 05/15/2017, requiring full assistance with activities of daily living. White count 7, hemoglobin 11, hematocrit 35, platelet count 271. Sodium 140, potassium 3.9, chloride 105, bicarbonate 30, BUN 27, creatinine 1.18, glucose 103 at 9:30 on 05/10/2017. Urine culture with E. faecalis, resistant to tetracycline. IMAGING STUDIES: CT of the head on 04/23/2017 showed age-related atrophy and microvascular ischemic changes, no acute intracranial hemorrhage, infarct, or mass effect. Chest x-ray with mild bibasilar atelectasis. Neck CT with no evidence of bony spinal stenosis. CT of the thoracic and lumbar spine; no acute abnormalities. There is a large disc osteophyte complex and disc bulge at L5-S1. Mild central canal stenosis. Bilateral neuro foraminal narrowing. Broad disc bulge at L4-L5 without evidence of central canal stenosis. Thyroid ultrasound was normal. Thyroid scan showed decreased uptake, consistent with thyroiditis. Abdominal x-ray was unremarkable. Time spent on discharge was 30 minutes. MTDD
== END 2017-05-15 13:17 | DRG 57 ==
LOC: M ED 09:12 → M ED INP 12:42 → M MSPAV 14:50
PROVIDERS: ADMIT Family Medicine; ATTEND General Practice
DX: I67.3 Progressive vascular leukoencephalopathy (principal); F80.2 Mixed receptive-expressive language disorder; Z66 Do not resuscitate; F03.90 Unspecified dementia, unspecified severity, without behavioral disturbance, psychotic disturbance, mood disturbance, and anxiety; I71.4 Abdominal aortic aneurysm, without rupture; B95.2 Enterococcus as the cause of diseases classified elsewhere; E78.5 Hyperlipidemia, unspecified; N18.3 Chronic kidney disease, stage 3 (moderate); I12.9 Hypertensive chronic kidney disease with stage 1 through stage 4 chronic kidney disease, or unspecified chronic kidney disease; N40.1 Benign prostatic hyperplasia with lower urinary tract symptoms; G62.9 Polyneuropathy, unspecified; Z85.46 Personal history of malignant neoplasm of prostate; Z90.49 Acquired absence of other specified parts of digestive tract; Z92.3 Personal history of irradiation; Z79.82 Long term (current) use of aspirin; Z79.899 Other long term (current) drug therapy; Z95.0 Presence of cardiac pacemaker; Z91.040 Latex allergy status; Z88.2 Allergy status to sulfonamides; Z88.5 Allergy status to narcotic agent; Z88.8 Allergy status to other drugs, medicaments and biological substances

== ENCOUNTER → 2017-05-18 | Outpatient (REF) | payer MEDICARE, MEDICAID ==
[~2017-05-18] MED LIST changes: -ATENOLOL 25 MG TAB PO SCH; +B121000T PO; +FLOM5CAP PO; +KEPP250T5 PO; +RISP0.2516 PO
[2017-05-18 10:00] LABS: MEAN CORPUSCULAR HEMOGLOBIN 30.8 pg (27.0-33.0); MEAN CORPUSCULAR HGB CONC 33.1 g/dl (32.0-36.5); RED CELL DISTRIBUTION WIDTH 12.3 % (11.5-14.5); WHITE BLOOD COUNT 7.5 10^3/uL (4.0-10.0)
[2017-05-18 10:21] LABS: ALBUMIN 2.9 GM/DL (3.2-5.2); ALBUMIN/GLOBULIN RATIO 0.91 (1.00-1.93); ALKALINE PHOSPHATASE 75 U/L (45-117); ALT/SGPT 18 U/L (12-78); ANION GAP 9 MEQ/L (8-16); AST/SGOT 15 U/L (15-37); BILIRUBIN,TOTAL 0.8 MG/DL (0.2-1.0); BLOOD UREA NITROGEN 35 MG/DL (7-18); CALCIUM LEVEL 9.3 MG/DL (8.8-10.2); CARBON DIOXIDE LEVEL 28 MEQ/L (21-32); CHLORIDE LEVEL 102 MEQ/L (98-107); CREATININE FOR GFR 1.44 MG/DL (0.70-1.30); GLOMERULAR FILTRATION RATE 50.1 (>35); GLUCOSE, FASTING 106 MG/DL (83-110); POTASSIUM SERUM 4.3 MEQ/L (3.5-5.1); SODIUM LEVEL 139 MEQ/L (136-145); TOTAL PROTEIN 6.1 GM/DL (6.4-8.2)
[2017-05-18 10:25] LABS: VITAMIN B12 LEVEL > 2000 PG/ML (247-911)
== END ==
LOC: SKLAB6 07:00
DX: D64.9 Anemia, unspecified (principal); E03.9 Hypothyroidism, unspecified; E78.5 Hyperlipidemia, unspecified; I12.9 Hypertensive chronic kidney disease with stage 1 through stage 4 chronic kidney disease, or unspecified chronic kidney disease; N18.3 Chronic kidney disease, stage 3 (moderate)

== ENCOUNTER → 2017-05-26 | Outpatient (REF) | payer MEDICARE, MEDICAID | LOC: M SMT 13:28 | PROVIDERS: ATTEND Urology | DX: N39.0 Urinary tract infection, site not specified (principal) | CPT/HCPCS: 51703; 81001; 87088; 87186; G0463 ==

== ENCOUNTER → 2017-06-11 | Outpatient (REF) | payer MEDICARE, MEDICAID | LOC: SKLAB6 22:41 | DX: R39.89 Other symptoms and signs involving the genitourinary system (principal) ==

== ENCOUNTER → 2017-06-13 | Outpatient (REF) | payer MEDICARE ==
[2017-06-13 08:54] LABS: ANION GAP 9 MEQ/L (8-16); BLOOD UREA NITROGEN 33 MG/DL (7-18); CALCIUM LEVEL 8.9 MG/DL (8.8-10.2); CARBON DIOXIDE LEVEL 25 MEQ/L (21-32); CHLORIDE LEVEL 114 MEQ/L (98-107); CREATININE FOR GFR 1.17 MG/DL (0.70-1.30); GLOMERULAR FILTRATION RATE > 60.0 (>35); GLUCOSE, FASTING 107 MG/DL (83-110); SODIUM LEVEL 148 MEQ/L (136-145)
== END ==
LOC: SKLAB6 07:15
DX: E03.9 Hypothyroidism, unspecified (principal); I44.2 Atrioventricular block, complete

== ENCOUNTER → 2017-06-21 | Outpatient (REF) | payer MEDICARE ==
--- NOTE | 2017-06-22 01:07 | ECGEPIP ---
Stationary ECG Study [facility] Test Date: 2017-06-21 Pat Name: TRUMAN DUMONT Department: Room: - Gender: M [employer]: [facility] : 1935 Requested By: Malaika Carbajal Order Number: [id number] Reading MD: Alexei Mendoza Measurements Intervals Sandy Rate: 88 P: TN: 0 QRS: 29 QRSD: 89 T: 53 QT: 362 QTc: 440 Interpretive Statements NORMAL SINUS RHYTHM WITH ABERRANT CONDUCTION OR VENTRICULAR PREMATURE COMPLEXES ABNORMAL RHYTHM ECG Compared to the last 2 tracings, PVCs are new Electronically Signed On 06-22-2017 1:06:49 EST by Alexei Mendoza
== END ==
LOC: SKLAB6 13:00
DX: R94.31 Abnormal electrocardiogram [ECG] [EKG] (principal)

== ENCOUNTER → 2017-06-23 | Outpatient (REF) | payer MEDICARE ==
[2017-06-23 10:50] LABS: FREE T4 1.61 NG/DL (0.76-1.46)
== END ==
LOC: SKLAB6 06-22 07:00
DX: R94.6 Abnormal results of thyroid function studies (principal)

== ENCOUNTER → 2017-06-26 | Outpatient (CLI) | payer MEDICAID, MEDICARE ==
--- NOTE | 2017-06-27 11:21 | REP ---
NUCLEAR THYROID SCAN WITH UPTAKE: Following the oral administration of 318 microcuries iodine 123 as sodium iodine, thyroid uptake is measured. The 24-hour uptake is 3.04% which is well below the normal range of 25-35%. Compared to the prior study of 04/28/2017, this is essentially unchanged, prior value was 3.21%. Thyroid scan shows poor uptake bilaterally, with lesser degree of uptake in the left lobe compared to the right. No definite focal hot or cold nodule is seen. IMPRESSION: Essentially stable exam. Signed by Syed Levy MD 06/27/2017 04:57 P
== END ==
LOC: M RAD 08:37
DX: E05.00 Thyrotoxicosis with diffuse goiter without thyrotoxic crisis or storm (principal)
CPT/HCPCS: 78012; A9516